=== PATIENT | female | born 1965 | race Two or more races ===

== ENCOUNTER → 2024-09-19 | Outpatient (CLI) | payer BC, SELFPAY ==
--- NOTE | 2024-09-19 | XR_ITS ---
Examination: Knee, left , 3 views Technique: Knee AP, lateral, oblique 3 views Date and time of exam: 07/22/2024 1246 hrs. Indications: Left knee pain one month Findings: Moderate osteopenia Moderate narrowing medial joint space Mild osteoarthritis patellofemoral joint No fracture Impression: Moderate medial joint space
--- NOTE | 2024-09-19 | XR_ITS ---
Examination: Lumbar spine, 5 views Technique: Lumbar spine AP, lateral, coned lateral lower lumbar spine, bilateral obliques 5 views Exam date and time: September 19, 2024 1246 hrs. Indications: Onset back pain beginning one month ago. Findings: Lumbar levoscoliosis 8 degrees Grade 1 anterolisthesis L4 on L5 No lumbar fracture Mild to moderate disc narrowing L4-5 Impression: Moderate degenerative disc disease L4-5
--- NOTE | 2024-09-19 12:05 | XR_ITS ---
Examination: Abdomen sonogram, complete Date and time of exam: September 19, 2024, 12 0 9:00 PM Indications: Abdominal pain one month. Technique: Multiple real-time grayscale transabdominal sonographic images of the abdomen have been obtained. Findings: Cholelithiasis, negative for cholecystitis Common duct 0.2 cm Pancreatic head 2.7 cm Aorta not enlarged. Liver 15.8 cm liver lesions Normal hepatopedal portal venous flow. Patent IVC. Right kidney 9.0 cm cortex 2.1 cm Left kidney 11.5 cm cortex 2.2 cm Mild renal parenchymal scar formation Minimal fluid anterior to the left kidney Spleen 8.6 cm Impression: Cholelithiasis, negative for cholecystitis Suspicious for left urinary tract infection
--- NOTE | 2024-09-19 12:05 | XR_ITS ---
Examination: Retroperitoneal ultrasound, complete Technique: Multiple high resolution grayscale images of the retroperitoneum obtained, including kidneys and bladder. Exam date and time:September 19, 2024 at 12:21 PM Indications: Flank pain one month Findings: Right kidney 11.0 cm cortex 1.9 cm Left kidney 11.3 cm cortex 2.2 cm Moderate bilateral renal parenchymal scar formation. Mild fluid anterior to the left kidney No bladder mass, bladder volume 257 cc Impression: Moderate bilateral renal parenchymal scar formation Suspicious for left urinary tract infection
== END | disposition home or self-care (01) ==
PROVIDERS: PCP Family Medicine; Referring Provider Registered Nurse; Visit Provider Registered Nurse
DX: M25.562 Pain in left knee (principal); M51.369 Other intervertebral disc degeneration, lumbar region without mention of lumbar back pain or lower extremity pain; K80.20 Calculus of gallbladder without cholecystitis without obstruction; N28.89 Other specified disorders of kidney and ureter
CPT/HCPCS: 72110; 73562; 76700; 76770

== ENCOUNTER → 2024-09-27 | Outpatient (CLI) | payer BC, SELFPAY ==
[2024-09-27 16:15] LABS: Collection Type, Urine Clean Catch
[2024-09-27 17:50] LABS: Bacteria,Urine Rare; Bilirubin,Urine Negative (Negative); Blood,Urine Negative (Negative); Clarity,Urine Clear (Clear/Hazy); Color,Urine Lt-Yellow (Lt Yel-Yel); Glucose, Urine 4+ (Negative); Ketones,Urine Negative (Negative); Leukocyte Esterase,Urine Negative (Negative); Nitrite,Urine Negative (Negative); PH,Urine 5.5 (5.0-7.0); Protein,Urine Negative (Neg - Trace); RBC,Urine < 1 /hpf (0-3); Specific Gravity,Urine 1.021 (1.001-1.035); Squamous Epithelial Cell,Urine 2 /hpf (0-5); Urobilinogen,Urine Negative mg/dL (0.0-1.0); WBC,Urine < 1 /hpf (0-5)
== END | disposition home or self-care (01) ==
LOC: SLDO 16:06
PROVIDERS: PCP Registered Nurse; Referring Provider Registered Nurse; Visit Provider Registered Nurse
DX: N39.0 Urinary tract infection, site not specified (principal)
CPT/HCPCS: 81001; 87086

== ENCOUNTER 2025-05-08 10:18 | Inpatient (IN) | payer BC, SELFPAY ==
[2025-05-08] VITALS (7 sets, daily range): BP systolic 153–163; BP diastolic 74–90; PULSE 68–93; RESP 14–98; TEMP 36.8–37; O2SAT 97–100; BMI 32.1; BMI 32.5
--- NOTE | 2025-05-08 10:46 | EDNOTE_ITS ---
ED SOB =RME/HPI General Chief Complaint: Recheck/Abnormal Lab/Rx Stated Complaint: LEFT LEG PAIN/SENT FROM OUTPATIENT US Time Seen by Provider: 05/08/25 10:46 Arrival date/time: 05/08/25 10:18 RME / HPI RME / HPI Narrative: See MDM for Dr. Sultana's HPI documentation. Related Data Home Medications ?Medication ?Instructions ?Recorded ?Confirmed albuterol sulfate 90 mcg/actuation 2 puff inhalation Q 4H PRN 05/09/25 05/09/25 aerosol inhaler shortness of breath or wheez ing ibuprofen 800 mg tablet 800 mg PO Q8H PRN pain 05/0905/09/25 Allergies Allergy/AdvReac Type Severity Reaction Status Date / Time No Known Allergies Allergy Verified 05/09/25 00:24 Review of Systems Review of Systems Systems Reviewed: All systems reviewed, normal except as documented Past Medical History Past Medical History RESPIRATORY: Positive Asthma Social History SMOKING STATUS: Never smoker ED Exam Narrative Physical exam: See MDM for Dr. Sultana's physical exam documentation. Course Quality Measures none Orders Category Date Time Status Bedside COVID-19 Antigen Test NOW Care 05/08/25 10:[address] Screening NOW Care 05/08/25 10:49 Active EKG (ED ONLY) *Do not use* NOW Care 05/08/25 10:48 Completed Saline [Insert IV] NOW Care 05/08/25 10:[address] angio chest Stat Exams 05/08/25 10:49 Completed EKG (ED Only) Stat Exams 05/08/25 10:48 Draft XR chest 1V portable Stat Exams 05/08/25 10:48 Completed BNP [B-Type Natriuretic Peptide] Stat Lab 05/08/25 11:11 Completed Bilirubin,Direct Stat Lab 05/08/25 11:11 Completed CBC Stat Lab 05/08/25 11:11 Completed CMP [Comprehensive Metabolic Panel] Stat Lab 05/08/25 11:11 Completed D-Dimer Stat Lab 05/08/25 11:11 Completed Influenza A & B Rapid Panel Stat Lab 05/08/25 12:45 Completed Magnesium Stat Lab 05/08/25 11:11 Completed PT [Prothrombin Time with INR] Stat Lab 05/08/25 14:10 Completed PTT [Partial Thromboplastin Time] Q6H Lab 05/08/25 21:46 Completed PTT [Partial Thromboplastin Time] Stat Lab 05/08/25 14:10 Completed TSH [Thyroid Stimulating Hormone] Stat Lab 05/08/25 11:11 Completed Troponin I Stat Lab 05/08/25 11:11 Completed UA, C/S IF [Urinalysis, C/S if Indicated] Stat Lab 05/08/25 21:52 Completed Albuterol/Ipratr Rt Rosa [Duoneb Rt Rosa] Med 05/08/25 10:47 Discontinued 3 ml INH X1 ONE Heparin Inj Med 05/08/25 15:00 Discontinued 8,000 unit IV X1 ONE Heparin/D5w 25K 250 ML Ivpb [Heparin in D5w Ivpb] Med 05/08/25 15:00 Active 25,000 unit in 250 ml IV 18 units/kg/hr MethylPREDNISolone.* [SoluMEDROL Inj] Med 05/08/25 10:47 Discontinued 125 mg IVP X1 ONE Sodium Chloride 0.9% 1000 ml [Ns] 1,000 ml Med 05/08/25 10:49 Discontinued IV 999 mls/hr Vital Signs Vital signs: Vital Signs Temperature 98.4 F 05/08/25 10:28 Pulse Rate 82 05/08/25 10:28 Respiratory Rate 19 05/08/25 10:28 Blood Pressure 163/90 H 05/08/25 10:28 Pulse Oximetry (%) 97 05/08/25 10:28 Oxygen Delivery Method Room Air 05/08/25 10:28 Pulse ox is 97% on room air which is adequate. Shortness of Breath / Dyspnea MDM Narrative MDM Narrative:: This section includes all my notes and documentations, including HPI, PE, and ED course. Syed Sultana MD HPI: 59-year-old female here with several days of left leg swelling and shortness of breath. ROS: All negative except as documented in HPI. Physical Exam: General: Alert and oriented. No acute distress with remaining still. Eyes: Conjunctivae and lids clear. ENT: No nasal congestion. Pharynx normal. Tympanic membrane normal bilaterally. Neck: Supple. No JVD. Heart: RRR. Lungs: No respiratory distress. Good air movement except RLL. Chest: No tenderness. Abdomen: Soft and nontender. Legs: No clubbing, cyanosis, edema. Skin: Warm and dry. Neuro: Alert and oriented X 3. I reviewed all diagnostic test results: My interpretation of the EKG is: Sinus rhythm (73 bpm) with right BBB and nonspecific ST-T changes. My interpretation of the chest x-ray is: NAD. My review of the CTA chest report is pulmonary embolism. My review of leg DVT report is left DVT. Blood tests and urine tests remarkable for D-Dimer 3,350. Covid/Influenza are negative. At this point, diagnoses include: Pulmonary embolism DVT Treatment here included: Duoneb and Solu-Medrol day 5 of IV (prior to diagnostic test results) IVF Heparin bolus and drip Patient remained stable. I discussed the case with our hospitalist. About the presentation and exam and diagnostics and treatments here. And need of further care in the hospital. Will accept the patient. Syed Sultana MD Patient data External records reviewed:: [facility] previous records Clinical information provided by:: patient Social determinants that could affect healthcare access:: none Patient has the following chronic illnesses:: Asthma How is presenting disease/condition affected by chronic disease/condition?: uneffected by Evaluation data The following diagnostics were reviewed and interpreted by me:: lab results, radiology exam(s) and EKG tracing(s) (My interpretation of the EKG is: Sinus rhythm (73 bpm) with right BBB and nonspecific ST-T changes. Syed Sultana MD) Lab and/or radiology exams considered but not ordered:: None Interpretation Summary: I reviewed all diagnostic test results: My interpretation of the EKG is: Sinus rhythm (73 bpm) with right BBB and nonspecific ST-T changes. My interpretation of the chest x-ray is: NAD. My review of the CTA chest report is pulmonary embolism. My review of leg DVT report is left DVT. Blood tests and urine tests remarkable for D-Dimer 3,350. Covid/Influenza are negative. Medications / Prescriptions Medications or Prescriptions considered but not ordered:: None Medication administrations:: Medication Administration History Acetaminophen (Acetaminophen 325 Mg Tablet) 650 mg PO Q6H PRN PRN Reason: Fever >100.4 or pain 1-3 Stop: 06/07/25 15:52 Hydrocodone Bitart/Acetaminophen (Hydrocodone/Apap 5/325 Tablet) 1 tab PO Q4HR PRN PRN Reason: PAIN SCALE 4-10(Mod-Sev Stop: 05/13/25 15:52 Last Admin: 05/09/25 05:37 Dose: 1 tab Documented By: Admin: 05/08/25 20:45 Dose: 1 tab Documented By: RICO Albuterol/Ipratropium (Albuterol/Ipratropium (Duoneb) Rt Rosa 3 Ml Nebu) 3 ml INH Q6HRRT REPLACED BY [facility] Stop: 06/07/25 18:59 Last Admin: 05/09/25 06:11 Dose: 3 ml Documented By: Admin: 05/08/25 18:03 Dose: 3 ml Documented By: JENNIFER Dextrose (Dextrose 50%-Water Inj 50 Ml Syringe) 25 ml IV Q15MIN PRN PRN Reason: BG 50-70 responsive npo pt Stop: 06/07/25 15:59 Dextrose (Dextrose 50%-Water Inj 50 Ml Syringe) 50 ml IV Q15MIN PRN PRN Reason: BG <50 OR BG <70 & pt unresponsive Stop: 06/07/25 15:59 Docusate Sodium (Docusate Sod 100 Mg Capsule) 100 mg PO QDAY REPLACED BY [facility]; Protocol Stop: 06/08/25 08:59 Last Admin: 05/09/25 09:02 Dose: Not Given Documented By: SC Non-Admin Reason: Patient Refused Famotidine (Famotidine 20 Mg Tablet) 20 mg PO BID REPLACED BY [facility] Stop: 06/07/25 20:59 Last Admin: 05/09/25 08:16 Dose: 20 mg Documented By: Admin: 05/08/25 21:12 Dose: 20 mg Documented By: MAGDY Glucagon (Glucagon Inj 1 Mg Vial) 1 mg IM Q15MIN PRN PRN Reason: BG <70, and no IV access Heparin Sodium/Dextrose (Heparin In D5w Ivpb) 25,000 unit in 250 mls @ 17.983 mls/hr IV .[id number] REPLACED BY [facility]; Protocol Stop: 05/22/25 14:59 Last Admin: 05/09/25 08:15 Dose: 15 units/kg/hr, 14.986 mls/hr Documented By: SC Co-signed By: JRR Titration: 05/09/25 07:39 Dose: Infused Documented By: SC Co-signed By: JRR Titration: 05/09/25 07:28 Dose: 15 units/kg/hr, 14.986 mls/hr Documented By: SC Co-signed By: MLD Titration: 05/08/25 23:52 Dose: 15 units/kg/hr, 14.986 mls/hr Documented By: MLD Co-signed By: IG Titration: 05/08/25 22:52 Dose: 0 units/kg/hr, 0 mls/hr Documented By: DT Co-signed By: SE Admin: 05/08/25 15:27 Dose: 18 units/kg/hr, 17.983 mls/hr Documented By: CHERYL Co-signed By: LF Insulin Human Lispro (Insulin Lispro (Admelog) 1 Unit/0.01 Ml Unit) 0 unit SC ACHS BRENNAN; Protocol Stop: 06/07/25 16:59 Last Admin: 05/09/25 08:16 Dose: 3 unit Documented By: SC Co-signed By: DARIELA Admin: 05/08/25 21:14 Dose: 4 unit Documented By: CB Co-signed By: DT Admin: 05/08/25 18:15 Dose: Not Given Documented By: CHERYL Non-Admin Reason: Patient Refused Discontinued Medications Albuterol/Ipratropium (Albuterol/Ipratropium (Duoneb) Rt Rosa 3 Ml Nebu) 3 ml INH X1 ONE Stop: 05/08/25 10:48 Last Admin: 05/08/25 12:29 Dose: 3 ml Documented By: [facility] Heparin Sodium (Porcine) (Heparin Sod Inj 5000 Unit/Ml Vial) 8,000 unit 80 unit/kg (8000 unit) IV X1 ONE; Protocol Stop: 05/08/25 15:01 Last Admin: 05/08/25 15:24 Dose: 8,000 unit Documented By: CHERYL Co-signed By: LF Sodium Chloride (Ns) 1,000 mls @ 999 mls/hr IV .Q1H1M ONE Stop: 05/08/25 11:49 Last Infusion: 05/08/25 15:14 Dose: Infused Documented By: Admin: 05/08/25 13:00 Dose: 999 mls/hr Documented By: DB Methylprednisolone Sodium Succinate (Methylprednisolone Sod Succ 62.5 Mg/Ml 2ml Vial) 125 mg IVP X1 ONE Stop: 05/08/25 10:48 Last Admin: 05/08/25 13:00 Dose: 125 mg Documented By: DB Potassium Chloride (Potassium Chloride 20 Meq Tabcr) 40 meq PO X1 ONE Stop: 05/09/25 07:41 Last Admin: 05/09/25 08:30 Dose: 40 meq Documented By: SC Treatment here from me included: Duoneb and Solu-Medrol day 5 of IV (prior to diagnostic test results) IVF Heparin bolus and drip Consultations Consultation(s) initiated? (list below): Yes Consultation #1 (Physician, Specialty, Details): I discussed the case with our hospitalist. About the presentation and exam and diagnostics and treatments here. And need of further care in the hospital. Will accept the patient. Time: 15:15 Diagnosis Shortness of Breath Differential Diagnosis: acute exacerbation of chronic obstructive airways disease, congestive heart failure, community acquired pneumonia, asthma with exacerbation and pulmonary embolism Most likely diagnosis given after review of the tests above:: Pulmonary embolism DVT Admission Indicated Admission indicated?: indicated Explain why admission is indicated or not indicated:: PE and DVT Admission Request Was there a request for admission?: Yes Admission Attestation Admission request attestation: Discussed case with Hospitalist service regarding admission. Discussed patients ED course, exam findings, labs, and radiology results. Agreed to accept the patient for admission. Disposition Plan Disposition Plan: Admit Critical Care Time Critical Care Time Critical Care Time: Yes Total Critical Care Time (min.): 35 Attestation: Due to a high probability of clinically significant, life threatening deteriora tion, the patient required my highest level of preparedness to intervene emergently and I personally spent this critical care time directly and personally managing the patient. This critical care time included obtaining a history; examining the patient; ordering and review of studies; arranging urgent treatment with development of a management plan; evaluation of patient's response to treatment; frequent reassessment; and discussions with family and other providers. It was exclusive of separately billable procedures and treating other patients and teaching time. Syed Sultana MD Discharge Plan Plan Patient Disposition: Admit Acute Care w/in Hospital Problem List Clinical Impression: Pulmonary embolism, DVT (deep venous thrombosis)
--- NOTE | 2025-05-08 10:48 | XR_ITS ---
EXAMINATION: PA chest single view TECHNIQUE: Upright PA chest single view Date and time: May 08, 2025, 10:53 a.m. INDICATIONS: Chest pain shortness of breath today. FINDINGS: Normal heart size. Lungs are clear. The osseous rectors are intact IMPRESSION: No active disease
--- NOTE | 2025-05-08 10:48 | EKG_ITS ---
[facility] Test Date: 2025-05-08 Pat Name: ONEIL AVALOS Department: Room: - Gender: Female [employer] Tender: : 1965 Requested By: Syed Carlson Order Number: [id number] Reading MD: Syed Carlson Measurements Intervals Merna Rate: 73 P: 43 MS: 180 QRS: 31 QRSD: 143 T: 6 QT: 437 QTc: 483 Interpretive Statements SINUS RHYTHM RIGHT BUNDLE BRANCH BLOCK [120+ ms QRS DURATION, UPRIGHT V1, 40+ ms S IN I/aVL/V4/V5/V6] No previous ECG available for comparison /store/S0/[id number]
--- NOTE | 2025-05-08 10:49 | XR_ITS ---
Examination: CTA chest with intravenous contrast 2-D reconstructions 3-D reconstructions, vascular Date and time of exam: May 08, 2025, 1418 hours INDICATIONS: Shortness of breath chest pain onset today CTDI: vol (mGy) 17 DLP: (mGycm) 345 Technique: Multiple axial sections of the thorax have been obtained. 3 mm slice thickness, from below the hemidiaphragms to above the apices of the lungs. Mediastinal and lung density settings have been obtained. 2-D sagittal and coronal reconstructions. 3-D angiographic renderings, 3-D volume renderings, 3D post processing, vascular maximum intensity projections obtained. Contrast administered is 100 cc Isovue-370 intravenous. Low dose protocols were performed. One or more of the following dose reduction techniques were used; automated exposure control, adjustment of the mA and/or KV according to patient size, use of iterative reconstruction technique. Findings: No thoracic aortic aneurysm dilatation or dissection Positive for pulmonary artery filling defects left upper lobe pulmonary arteries, for instance axial image 55 and right lower lobe pulmonary artery branches for instance image 57 through 45 3 mm pulmonary nodule right upper lobe No pneumonia or pulmonary infarction No liver or splenic lesion Multiple gallstones No pancreatic mass Left adrenal adenoma 20 mm IMPRESSION: Positive for multiple segmental pulmonary artery emboli 3 mm pulmonary nodule right upper lobe, with the studies baseline recommend 6-month follow-up CT chest without contrast
[2025-05-08 11:36] LABS: Basophils # (Auto) 0.0 Thou/mm3 (0.0-0.2); Basophils % (Auto) 0 % (0-2.5); Eosinophils # (Auto) 0.2 Thou/mm3 (0.0-0.5); Eosinophils % (Auto) 2 % (0-10); Hematocrit 39.4 % (36.0-46.0); Hemoglobin 12.4 g/dL (12.0-16.0); Immature Granulocytes Auto 0.02 Thou/mm3 (0.00-0.00); Lymphocytes # (Auto) 2.0 Thou/mm3 (1.0-4.8); Lymphocytes % (Auto) 23 % (10-50); Mean Corpuscular HGB Conc 31.5 g/dl (31.0-37.0); Mean Corpuscular Hemoglobin 26.8 pg (25.0-35.0); Mean Corpuscular Volume 85 fL (80-100); Monocytes # (Auto) 0.8 Thou/mm3 (0.0-0.8); Monocytes % (Auto) 9 % (0-12); Neutrophils # (Auto) 5.4 Thou/mm3 (1.8-7.7); Neutrophils % (Auto) 65 % (37-80); Nucleated Red Blood Cell # 0.00 Thou/mm3 (0.00-0.00); Nucleated Red Blood Cell % 0 /100 WBC (0); Platelet Count 190 Thou/mm3 (140-440); RDW Standard Deviation 46.1 fL (36.4-46.3); Red Blood Count 4.63 Miln/mm3 (4.00-5.20); White Blood Count 8.4 Thou/mm3 (3.6-11.0)
[2025-05-08 11:52] LABS: Alanine Aminotransferase 11 U/L (10-49); Albumin, Serum 5.2 gm/dL (3.5-5.0); Albumin/Globulin Ratio 2.3 (1.2-2.2); Alkaline Phosphatase 94 U/L (46-116); Anion Gap 12 (7-16); Aspartate Amino Transferase 24 U/L (0-34); BUN/Creatinine Ratio 14 Ratio (12-20); Bilirubin,Direct 0.2 mg/dL (0.0-0.3); Bilirubin,Total 0.9 mg/dL (0.3-1.2); Blood Urea Nitrogen 11 mg/dL (9-23); Calcium 9.2 mg/dL (8.3-10.6); Calcium (Corrected) 9.2 mg/dL (8.5-10.1); Carbon Dioxide 25.1 mMol/L (20.0-31.0); Chloride 106 mMol/L (98-107); Creatinine (Component) 0.8 mg/dL (0.6-1.3); Estimated Creatinine Clearance 97.6 mL/min (>60); Globulin 2.3 gm/dL (2.3-3.5); Glucose 127 mg/dL (74-106); Magnesium 2.2 mg/dL (1.6-2.6); Osmolality,Calculated 286 (275-295); Potassium 3.7 mMol/L (3.4-5.1); Sodium 143 mMol/L (136-145); Thyroid Stimulating Hormone 1.13 uIU/mL (0.55-4.78); Total Protein 7.5 gm/dL (5.7-8.2); Troponin I < 0.002 ng/mL (0.0-0.045); eGFR > 60 See Note
[2025-05-08 12:10] LABS: B-Type Natriuretic Peptide 25 pg/mL (0-100)
[2025-05-08 12:25] LABS: D-Dimer 3350 ng/mL (<600)
[2025-05-08] MEDS: ALBUTEROL/IPRATROPIUM (Duoneb) RT SOL 3 ML NEBU INH ×2 (12:29→18:03)
[2025-05-08] MEDS: SODIUM CHLORIDE 0.9% 1000 ML 1,000 ML 999 ML IV (13:00)
[2025-05-08] MEDS: MethylPREDNISolone SOD SUCC 62.5 MG/ML 2ML VIAL 125 MG IVP (13:00)
[2025-05-08 13:17] LABS: Influenza A Ag Negative; Influenza B Ag Negative
[2025-05-08 14:52] LABS: INR 1.1 (0.9-1.3); Partial Thromboplastin Time 27.7 Seconds (22.0-36.0); Prothrombin Time 11.4 Seconds (9.0-12.2)
[2025-05-08] MEDS: HEPARIN SOD INJ 5000 UNIT/ML VIAL 8000 UNIT IV (15:24)
[2025-05-08] MEDS: Heparin/D5w 25K 250 ML Ivpb 25,000 UNIT/250 ML BAG 17.983 UNIT IV (15:27)
--- NOTE | 2025-05-08 15:34 | ECHO_ITS ---
Patient Info Name: Tori Arellano Age: 59 years : 1965 Gender: Female Ht: 175 cm Wt: 100 kg BSA: 2.24 m2 BP: 129 / 72 mmHg HR: 76 bpm Exam Date: 05/09/2025 2:24 PM Admit Date: 05/08/2025 Site: [facility] Room Number: 260 Patient Status: I Exam Type: CA echo doppler complete Private Duty Lpn: Milagro Dobson Ordering Physician: Yassine Rockwell Study Info Indications PE, Rule out Right heart Strain - Primary Location: [id number] Left Ventricular Outflow Tract Name Value Normal LVOT 2D LVOT Diameter 1.9 cm LVOT Doppler LVOT Peak Velocity 115 cm/s LVOT Mean Gradient 3 mmHg LVOT VTI 29 cm LVOT VTI/AV VTI Ratio 0.8 LVOT Stroke Volume 81 ml Pulmonic Valve Name Value Normal PV Doppler PV Peak Velocity 144 cm/s Mitral Valve Name Value Normal MV Annular TDI MV Septal e' Velocity 8.2 cm/s MV Lateral e' Velocity 8.7 cm/s MV e' Average 8.43 cm/s Tricuspid Valve Name Value Normal TV Regurgitation Doppler TR Peak Velocity 251 cm/s Estimated PAP/RSVP RA Pressure 8 mmHg <=5 PA Systolic Pressure 33 mmHg <36 RV Systolic Pressure 33 mmHg <36 TV Annular TDI TV Lateral Eri s' Velocity 13.1 cm/s >=9.5 Aortic Valve Name Value Normal AV 2D/MM AV Cusp Sep (MM) 1.4 cm AV Doppler AV Peak Velocity 176 cm/s AV Mean Gradient 6 mmHg AV VTI 38 cm AV Area (Cont Eq VTI) 2.1 cm2 >=3.0 AV Area (Cont Eq Maynor) 1.9 cm2 AV DI (Maynor) 0.65 AV Regurgitation 2D LVOT Area 2.8 cm2 Ventricles Name Value Normal LV Dimensions 2D/MM IVS Diastolic Thickness (2D) 0.8 cm 0.6-0.9 LVID Diastole (2D) 4.9 cm 3.8-5.2 LVIW Diastolic Thickness (2D) 1.5 cm 0.6-0.9 LVID Systole (2D) 3.1 cm 2.2-3.5 LVOT Diameter 1.9 cm LV Mass (2D Cubed) 213.26 g 67.00-162.00 LV Mass Index (2D Cubed) 95 g/m2 43-95 Relative Wall Thickness (2D) 0.61 <=0.42 IVS/LVIW Diastolic Thickness (2D) 0.53 0.00-1.50 LV Fractional Shortening/Ejection Fraction 2D/MM LV Fractional Shortening (2D) 37 % 27-45 LV EF (2D Teichholz) 66 % Atria Name Value Normal LA Dimensions LA Volume (4C A-L) 85 ml LA Volume (BP A-L) 67 ml Left Ventricle Left ventricular chamber dimension is normal. Left ventricular systolic function is normal with visually estimated ejection fraction of 60-65%. There is normal geometry noted in the left ventricle. Left ventricular segmental wall motion is normal. There is grade I diastolic dysfunction in the left ventricle. Right Ventricle Right ventricular chamber dimension is normal. Right ventricular systolic function is normal. Left Atrium Left atrial chamber dimension is mildly enlarged. Right Atrium Right atrial chamber dimension is normal. Aortic Valve The aortic valve is trileaflet. There is no aortic valve sclerosis. There is no aortic valve stenosis with a peak velocity of 176 cm/s, mean gradient of 6 mmHg, and aortic valve area of 2.1 cm2. There is no aortic valve regurgitation. Pulmonic Valve The pulmonic valve is normal. There is no pulmonic valve stenosis. There is trace pulmonic regurgitation. Mitral Valve The mitral valve has thickened leaflets. There is no mitral valve stenosis. There is trace mitral valve regurgitation. Tricuspid Valve The tricuspid valve leaflets are normal. There is no tricuspid valve stenosis. There is mild tricuspid valve regurgitation. No pulmonary hypertension, estimated pulmonary arterial systolic pressure is 33 mmHg and systemic blood pressure of 129 mmHg in systole. Pericardium/Pleural The pericardium appears normal. There is no pericardial effusion. No pleural effusion visualized. Inferior Vena Cava Normal inferior vena cava with >50% collapse upon inspiration consistent with normal right atrial pressure, 8 mmHg. Aorta The aortic measurements are indexed to age and body surface area. The aortic root at the sinus of Valsalva is not well visualized. The prox ascending aorta is not well visualized. Summary 1. Left ventricle size is normal and systolic function is normal. Visually estimated ejection fraction is 60-65%. There is grade I diastolic dysfunction. 2. Right ventricle size is normal and systolic function is normal. Estimated RVSP is 33 mmHg. No evidence of any RV strain. 3. There is trace mitral valve regurgitation and mild TR. 4. The left atrium is mildly enlarged. The right atrium is normal. 5. Normal IVC with estimated RA pressure 8 mmHg. Report Signatures Finalized by Donato Navarro on 05/09/2025 08:43 PM
--- NOTE | 2025-05-08 16:08 | PD.RESHP ---
Documentation for date of: 05/08/25 Patient is a 59-year-old female with a medical history of prediabetes and asthma who presented to the emergency room with a chief complaint of abnormal left lower leg swelling with erythema and pain. Patient stated previously similar episode about 4 years ago that was followed up with primary care provider and showed a negative DVT with ultrasound. Patient stated she took a 3-hour drive on Tuesday (05/06/2025) and drove back the following day 3 hours ago, which is less likely provoked as this trip was less than 6 hours. Patient noticed some swelling on Tuesday evening after returning home but became concerned today on 05/08/2025 after swelling increased as compared to the right leg. No recent surgery. Denied Trauma. Denied history of malignancy. Brother history of superficial upper extremity DVT. Patient is admitted for Acute Pulmoanry ebolism. Heparin drip started. Simplified PESI 57 points, grade I. Although Grade I, follow up with Echo and repeat troponin as some patients may still benefit from thrombectomy. Patient will likely be transitioned Eliquis upon discharge to be continued for at least 3 months for PE. Following anticoagulation panel. Depending on echo, may benefit from cardiology consult, if R. heart strain noted. 1. Acute subsegmental pulmonary embolism 2. Acute Pulmonary embolism 3. Acute lower extremity DVT, unprovoked 4. Diabetes Mellitus Type II A1c 6.8 (2023) 5. Asthma Senior Resident Attestation: I have discussed the case with supervising physician and internet merchant physician involved in the care of patient. I personally saw and examined patient and discussed the assessment and plan with the entire medical team, including attending. I agree with assessment and plan as documented above. - The patient's plan was discussed with attending Dr. Honey Dowell MD PGY2 Internal Medicine HPI History of Present Illness History of present illness: 59-year-old female with PMHx of asthma presenting to ED from PCP with several days of left leg swelling and shortness of breath. Admitted for unprovoked DVT and PE. Upon initial examination of the patient, she was laying down in gurney with older sister in the room. States 5 days ago, Tuesday, she went on a [address] to visit family, and while there watched over one of her sick grandchildren. On that day she felt a pain in her back and was breathing funny, but thought it was her asthma or maybe the flu. She drove back 3 hours that night. Taking a shower improved her breathing. Two days later, Tuesday, she woke up feeling ill, and hung out at home watching tv and cleaned. On Tuesday her right ankle was bothering her - it is a chronic problem from a lingering fracutre - so she did not go to work. When she sat down to inspect her ankle she noticed her opposite (left) leg was swollen as well so she elevated both legs. On Tuesday morning her left leg was so swollen and painful she couldn't walk but she still went to work because she can sit down. Of note she has a history of unilateral leg swelling managed with hydrochlorothiazide that her PCP says would help with her volume overload swelling, but no history of kidney or cardiac disease. She called her doctor that night as the swelling worsened who recommended she get an US. Upon initial read of US she was sent to the ER. Currently the swelling has reduced but apparently she was unable to wrap her hand around her calf, it was very painful and darker in color. She denies chest pain and is unsure if she has pain with inspiration. Notices some pain in her back that usually happens with asthma exacerbation. She endorses posterior left leg pain and swelling. Notable for recent history of broken right foot last year and gained about 20lbs since then. She endorses understanding of risks of falls on heparin and other anticoagulants and is agreeable to treatment. ED Course Summary: Physical Exam: Unremarkable, No respiratory distress lungs clear to auscultation, heart RRR and no JVD Vitals: Hypertensive 163/90, HR 82 RR 19 O2 97% RA Labs: Unremarkable CBC and CMP, coag panel wnl, D-dimer 3,350, troponin <0.002 COVID and flu negative UA +4 glucose Imaging: EKG RBBB QTc 483. Venous doppler: extensive acute occlusive DVT left superficial femoral vein, left popliteal peroneal posterior tibial veins extensive acute occlusive DVT . Cxr: no active disease. Chest CTA positive for multiple segmental pulmonary artery emboli, 3mm pulm nodule RUL Tx: Duoneb, solumedrol 125mg IV, IV fluids, heparin gtt Patient is being admitted for acute pulmonary embolism and unprovoked DVT. Code: Full Insulin: None Medical Hx: Asthma, unilateral leg swelling (fluid overload), R ankle sprain over 1 year Medications: Albuterol prn, HCTZ for when leg swells Allergies: KNA Surgical history: gastric bypass Fhx: Brother has disseminated cocici had a DVT in his hand in October. 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 Exam Vital Signs Temp Pulse Resp BP Pulse Ox O2 Del Method 98.3 F 68 18 153/78 H 100 Room Air 05/08/25 12:16 05/08/25 12:31 05/08/25 12:31 05/08/25 12:16 05/08/25 12:05/08/25 12:16 Narrative Exam GENERAL APPEARANCE: AOx3. NAD, activity normal for age, well developed/ well nourished, no cyanosis, pallor, or diaphoresis. HEENT: Normocephalic atraumatic, no facial trauma, neck is supple. Lids/conjunctiva normal. Mucous membranes moist, nares normal, lips/teeth normal uvula midline without oral pharyngeal erythema, exudate or swelling TMs normal bilaterally. No lymphangitis/lymphedema. CARDIAC: Regular rate and rhythm, S1+S2 heard. No murmurs, rubs, or gallops noted RESPIRATORY: respiratory effort normal, speaks in full sentences, no tripod position, no accessory muscle use. + rhonchi +wheezes left side ABDOMINAL: NBS. Soft, ND, +TTP at epigastrium. No evidence of fluid wave. No pulsatile masses on exam, rebound tenderness, Armstrong sign or pain over Mcburney's point. MUSCLES/EXTREMITIES: No abnormal range of motion. Left leg swelling and left popliteal swelling and tenderness and warmth. DERM: Warm, pink and dry. No rashes, dermatoses, petechiae or lesions. NEUROLOGICAL: Speech is clear and appropriate. Normal level of consciousness. Gait not assessed. Coordination normal. 5/5 strength in all extremities. PSYCH: Normal mood and affect. Judgement/competence is appropriate Results: Labs 05/09/25 05:15 05/09/25 05:15 Labs: Short CBC 05/08/25 Range/Units 11:11 WBC 8.4 (3.6-11.0) Thou/mm3 Hgb 12.4 (12.0-16.0) g/dL Hct 39.4 (36.0-46.0) % Plt Count 190 (140-440) Thou/mm3 BMP 05/08/25 11:11 Sodium 143 Potassium 3.7 Chloride 106 Carbon Dioxide 25.1 BUN 11 Creatinine 0.8 Glucose 127 H Calcium 9.2 Cardiac Enzymes 05/08/25 Range/Units 11:11 Troponin I < 0.002 (0.0-0.045) ng/mL Liver Function 05/08/25 Range/Units 11:11 Total Bilirubin 0.9 (0.3-1.2) mg/dL Direct Bilirubin 0.2 (0.0-0.3) mg/dL AST 24 (0-34) U/L ALT 11 (10-49) U/L Alkaline Phosphatase 94 (46-116) U/L Albumin 5.2 H (3.5-5.0) gm/dL Quality Measures Quality Measures none Medications Home Medications and Allergies Home Medications ?Medication ?Instructions ?Recorded ?Confirmed ?Type albuterol sulfate 90 mcg/actuation 2 puff inhalation Q4H PRN 05/09/25 05/09/25 History aerosol inhaler shortness of breath or wheezing ibuprofen 800 mg tablet 800 mg PO Q8H PRN pain 05/09/25 05/09/25 History Allergies Allergy/AdvReac Type Severity Reaction Status Date / Time No Known Allergies Allergy Verified 05/09/25 00:24 Visit Medications Acetaminophen (Acetaminophen 325 Mg Tablet) 650 mg PO Q6H PRN PRN Reason: Fever >100.4 or pain 1-3 Stop: 06/07/25 15:52 Hydrocodone Bitart/Acetaminophen (Hydrocodone/Apap 5/325 Tablet) 1 tab PO Q4HR PRN PRN Reason: PAIN SCALE 4-10(Mod-Sev Stop: 05/13/25 15:52 Albuterol/Ipratropium (Albuterol/Ipratropium (Duoneb) Rt Rosa 3 Ml Nebu) 3 ml INH Q6HRRT BRENNAN Stop: 06/07/25 18:59 Dextrose (Dextrose 50%-Water Inj 50 Ml Syringe) 25 ml IV Q15MIN PRN PRN Reason: BG 50-70 responsive npo pt Stop: 06/07/25 15:59 Dextrose (Dextrose 50%-Water Inj 50 Ml Syringe) 50 ml IV Q15MIN PRN PRN Reason: BG <50 OR BG <70 & pt unresponsive Stop: 06/07/25 15:59 Docusate Sodium (Docusate Sod 100 Mg Capsule) 100 mg PO QDAY [facility]; Protocol Stop: 06/08/25 08:59 Famotidine (Famotidine 20 Mg Tablet) 20 mg PO BID BRENNAN Stop: 06/07/25 20:59 Glucagon (Glucagon Inj 1 Mg Vial) 1 mg IM Q15MIN PRN PRN Reason: BG <70, and no IV access Heparin Sodium/Dextrose (Heparin In D5w Ivpb) 25,000 unit in 250 mls @ 17.983 mls/hr IV .[id number] [facility]; Protocol Stop: 05/22/25 14:59 Last Admin: 05/08/25 15:27 Dose: 18 units/kg/hr, 17.983 mls/hr Insulin Human Lispro (Insulin Lispro (Admelog) 1 Unit/0.01 Ml Unit) 0 unit SC ACHS [facility]; Protocol Stop: 06/07/25 16:59 Discontinued Medications Albuterol/Ipratropium (Albuterol/Ipratropium (Duoneb) Rt Rosa 3 Ml Nebu) 3 ml INH X1 ONE Stop: 05/08/25 10:48 Last Admin: 05/08/25 12:29 Dose: 3 ml Heparin Sodium (Porcine) (Heparin Sod Inj 5000 Unit/Ml Vial) 8,000 unit 80 unit/kg (8000 unit) IV X1 ONE; Protocol Stop: 05/08/25 15:01 Last Admin: 05/08/25 15:24 Dose: 8,000 unit Sodium Chloride (Ns) 1,000 mls @ 999 mls/hr IV .Q1H1M ONE Stop: 05/08/25 11:49 Last Infusion: 05/08/25 15:14 Dose: Infused Methylprednisolone Sodium Succinate (Methylprednisolone Sod Succ 62.5 Mg/Ml 2ml Vial) 125 mg IVP X1 ONE Stop: 05/08/25 10:48 Last Admin: 05/08/25 13:00 Dose: 125 mg Assessment & Plan Plan 59-year-old female here with several days of left leg swelling and shortness of breath. Admitted for PE and DVT. #PE 2/2 unprovoked DVT Virchow triad: stasis, hypercoagulability, endothelial injury. Only 1/3: stasis Patient had recent multiple 3 [address] and recent sick contact. She has swelling, erythema, and pain of her left lower extremity as well as pain in her back when breathing. On physical exam patient is breathing fine on RA + rhonchi +wheezes left side, Left leg swelling and left popliteal swelling and tenderness and warmth. Lab workup is siginficant for elevated D-dimer 3350 EKG RBBB QTc 483. COVID and flu negative. Venous doppler extensive acute occlusive DVT. Cxr: no active disease. Chest CTA positive for multiple segmental pulmonary artery emboli. Started on heparin drip in ED. Plan: -Heparin drip -Cocci serology:___ -ECHO:___ -TSH:___ -Cards consulted -Currently on AC but should consider outpatient work up Inherited thrombophilias: factor V Leiden, prothrombin gene mutation, protein C deficiency, protein S deficiency, antithrombin deficiency. Acquired thrombophilias: antiphospholipid syndrome (lupus anticoagulant, anticardiolipin, and beta-2 glycoprotein I antibodies). #Hyperglycemia #c/f diabetes A1C 6.8 03/15/24. 127 glucose on admission. Plan: -ISS step 1 -Bedside glucose checks ACHS -Recheck A1C in AM -FUP lipid panel:___ #Hx of asthma Wheezing heard on physical exam, has an albuterol inhaler Plan: -Duonebs 3ml INH Q6HRRT rtsol #Hx of R ankle pain/break Plan: -Pain control tylenol 650mg Q6H PRN and Narco 5 Q4HR PRN #Incidental finding #3mm pulm nodule RUL 3 mm pulmonary nodule right upper lobe on CT angio Plan: -recommend 6-month follow-up CT chest without contrast Health Maintenance: Code status: Full DVT prophylaxis: Heparin drip GI prophylaxis: Famotidine Diet: Low carb consistent Murray:None Lines: PIV Supplemental O2: NC Disposition: Tele for DVT and PE management Patient seen and reviewed with attending Dr. Méndez and supervising resident Dr. Dowell. Note written by Jay Schwartz MD PGY-1 Attending Provider Attestation/Addendum I have seen and examined the patient. I was physically present for the cardenas portions of the services provided including history, physical exam, diagnosis, treatment plans and orders. I agree with assessment and plan of care as documented by residents. After examination of the patient and review of the clinical data I feel that this patient needs admission to the hospital for further treatment/evaluation. Even though this this note was carefully revised there may still be minor errors in machinist apprentice due to voice recognition software. Flo Méndez MD
[2025-05-08 17:04] LABS: Troponin I < 0.002 ng/mL (0.0-0.045)
--- NOTE | 2025-05-08 17:37 | ESCONSULT_ITS ---
HPI Data of Consult Requesting Physician: Flo Méndez MD Admitting Provider: Flo Méndez MD Attending Provider: Flo Méndez MD Primary Care Provider: Renetta Banks MD Consult Narrative History of present illness: Tori Arellano is a 59-year-old female with a history of asthma who presents to the ED with left lower extremity swelling and pain. She first noted right lower extremity discomfort two days ago but attributes this to an old ankle fracture. The following day her left lower extremity started to become uncomfortable and noted significantly progressive swelling and pain to the point where she could not bend her left knee and prompted her to come to the emergency room. Does not endorse any shortness of breath but repeatedly states that she has asthma but does have some right-sided chest discomfort that is not pleuritic in nature. She did go on a road trip that was about three hours but denies any long distance traveling, including flights. States that she is relatively active at her job and denies any recent weight loss and night sweats. However, she does state that her brother was recently diagnosd with a clot in his upper extremity but no other family history of clots. In the ED she was on room air saturating 97% and hemodynamically stable with blood pressure noted to be 163/90. Labs significant for D-dimer of 3300, negative troponin, negative BNP. Venous Doppler of the left lower extremity showed extensive, acute, occlusive DVTs of the left superficial femoral vein, left popliteal, peroneal, and posterior tibial veins. CTA chest showed multiple segmental pulmonary emboli and a 3 mm pulmonary nodule in the right upper lobe. EKG showed sinus rhythm, right bundle branch block with no previous EKGs to compare. Started on heparin drip, given DuoNebs as well as IV steroids, 1 L NS bolus. Cardiology consulted for DVT and pulmonary emboli. PMHx: asthma Medications: albuterol inhaler FHx: brother with DVT in upper extremity but no reported clotting disorders SHx: denies significant cigarette, alcohol, or illicit drug use; works in [employer] for the [employer] cc:: cc: Flo Méndez MD Review of Systems Review of Systems Systems Reviewed: All systems reviewed, normal except as documented Exam Vital Signs Temp Pulse Resp BP Pulse Ox O2 Del Method 98.3 F 81 18 153/78 H 100 Room Air 10/29/25 12:16 05/08/25 16:35 05/08/25 16:35 05/08/25 12:16 05/08/25 12:31 05/08/25 12:16 Narrative Exam General: AOx3, no acute distress, able to speak full sentences HEENT: NC/AT, mucous membranes moist, bilateral sclera anicteric Cardiovascular: regular rate and rhythm, S1/S2 present, no murmurs appreciated Pulmonary: clear to auscultation bilaterally, no rales/rhonchi/wheezes Abdominal: soft, non-tender, non-distended, no rebound/guarding, normal bowel sounds present Musculoskeletal: normal ROM, trace edema in left lower extremity and tenderness to palpation in popliteal region Skin: warm and dry, intact, no rashes Neuro: CN II-XII intact, no focal deficits Results Labs 05/09/25 05:15 05/09/25 05:15 Labs: Short CBC 05/08/25 Range/Units 11:11 WBC 8.4 (3.6-11.0) Thou/mm3 Hgb 12.4 (12.0-16.0) g/dL Hct 39.4 (36.0-46.0) % Plt Count 190 (140-440) Thou/mm3 BMP 05/08/25 11:11 Sodium 143 Potassium 3.7 Chloride 106 Carbon Dioxide 25.1 BUN 11 Creatinine 0.8 Glucose 127 H Calcium 9.2 Cardiac Enzymes 05/08/25 05/08/25 Range/Units 11:11 16:29 Troponin I < 0.002 < 0.002 (0.0-0.045) ng/mL Liver Function 05/08/25 Range/Units 11:11 Total Bilirubin 0.9 (0.3-1.2) mg/dL Direct Bilirubin 0.2 (0.0-0.3) mg/dL AST 24 (0-34) U/L ALT 11 (10-49) U/L Alkaline Phosphatase 94 (46-116) U/L Albumin 5.2 H (3.5-5.0) gm/dL Quality Measures Quality Measures none Medications Home Medications and Allergies Home Medications ?Medication ?Instructions ?Recorded ?Confirmed ?Type albuterol sulfate 90 mcg/actuation 2 puff inhalation Q 4H PRN 05/09/25 05/09/25 History aerosol inhaler shortness of breath or wheez ing ibuprofen 800 mg tablet 800 mg PO Q8H PRN pain 05/0905/09/25 History Allergies Allergy/AdvReac Type Severity Reaction Status Date / Time No Known Allergies Allergy Verified 05/09/25 00:24 Visit Medications Acetaminophen (Acetaminophen 325 Mg Tablet) 650 mg PO Q6H PRN PRN Reason: Fever >100.4 or pain 1-3 Stop: 06/07/25 15:52 Hydrocodone Bitart/Acetaminophen (Hydrocodone/Apap 5/325 Tablet) 1 tab PO Q4HR PRN PRN Reason: PAIN SCALE 4-10(Mod-Sev Stop: 05/13/25 15:52 Albuterol/Ipratropium (Albuterol/Ipratropium (Duoneb) Rt Rosa 3 Ml Nebu) 3 ml INH Q6HRRT BRENNAN Stop: 06/07/25 18:59 Dextrose (Dextrose 50%-Water Inj 50 Ml Syringe) 25 ml IV Q15MIN PRN PRN Reason: BG 50-70 responsive npo pt Stop: 06/07/25 15:59 Dextrose (Dextrose 50%-Water Inj 50 Ml Syringe) 50 ml IV Q15MIN PRN PRN Reason: BG <50 OR BG <70 & pt unresponsive Stop: 06/07/25 15:59 Docusate Sodium (Docusate Sod 100 Mg Capsule) 100 mg PO QDAY [facility]; Protocol Stop: 06/08/25 08:59 Famotidine (Famotidine 20 Mg Tablet) 20 mg PO BID BRENNAN Stop: 06/07/25 20:59 Glucagon (Glucagon Inj 1 Mg Vial) 1 mg IM Q15MIN PRN PRN Reason: BG <70, and no IV access Heparin Sodium/Dextrose (Heparin In D5w Ivpb) 25,000 unit in 250 mls @ 17.983 mls/hr IV .[id number] [facility]; Protocol Stop: 05/22/25 14:59 Last Admin: 05/08/25 15:27 Dose: 18 units/kg/hr, 17.983 mls/hr Insulin Human Lispro (Insulin Lispro (Admelog) 1 Unit/0.01 Ml Unit) 0 unit SC ACHS [facility]; Protocol Stop: 06/07/25 16:59 Discontinued Medications Albuterol/Ipratropium (Albuterol/Ipratropium (Duoneb) Rt Rosa 3 Ml Nebu) 3 ml INH X1 ONE Stop: 05/08/25 10:48 Last Admin: 05/08/25 12:29 Dose: 3 ml Heparin Sodium (Porcine) (Heparin Sod Inj 5000 Unit/Ml Vial) 8,000 unit 80 unit/kg (8000 unit) IV X1 ONE; Protocol Stop: 05/08/25 15:01 Last Admin: 05/08/25 15:24 Dose: 8,000 unit Sodium Chloride (Ns) 1,000 mls @ 999 mls/hr IV .Q1H1M ONE Stop: 05/08/25 11:49 Last Infusion: 05/08/25 15:14 Dose: Infused Methylprednisolone Sodium Succinate (Methylprednisolone Sod Succ 62.5 Mg/Ml 2ml Vial) 125 mg IVP X1 ONE Stop: 05/08/25 10:48 Last Admin: 05/08/25 13:00 Dose: 125 mg Assessment & Plan Plan Tori Arellano is a 59-year-old female with a history of asthma who is admitted and cardiology consulted for DVT/PE. #Unprovoked acute, occlusive DVT in left lower extremity #Multiple pulmonary emboli Presents with lower extremity swelling and pain for the last few days to the point where she could not bend at the knee. No associated shortness of breath but some right-sided chest discomfort. After starting heparin drip in ED, lower extremity swelling significantly improved per patient. Per history, no risk factors for development of DVT/PE as she has not recently had long distance travel, recent infection, or signs of malignancy but will require further work- up. Denies shortness of breath, breathing well on room air, and is hemodynamically stable; thus, unlikely massive/submassive pulmonary emboli, consistent with imaging findings but will further evaluate with echo. EKG with RBBB that may be sign of RV strain but no previous EKGs to compare. ? Continue heparin drip ? Follow-up echo ? If no procedure indicated then can transition to eliquis 10 mg twice daily for 7 days and then 5 mg twice daily thereafter ? DVT/PE seemingly unprovoked, recommend further evaluation for coagulation disorders and malignancy work-up (i.e. never had colonoscopy) outpatient #Hyperglycemia in setting of recent steroids #Asthma #History of right ankle pain/break #Incidental 3 mm pulm nodule in RUL ? Continue management per primary team ----- Plan discussed with attending physician Dr. Honorio Almonte MD PGY-2 Internal Medicine Attending Provider Attestation/Addendum I have personally seen and examined the patient separately on the above date of service and discussed the plan of care with the resident. I reviewed the resident Dr. Shen Almonte consultation progress note and agree with the resident findings and plan in the note above and have also edited the documentation to reflect my findings and plan. A 59-year-old female with a past medical history of pulmonary asthma with intermittent albuterol uses, obesity presented to the hospital for worsening lower extremity swelling and pain over the past few days that she also has noted some having shortness of breath for the past 1 to 2 days and decided to come to the emergency department for further evaluation. The emergency department workup showed that patient did have occlusive left DVT which was extensive involving the left superficial vein, left popliteal vein, peroneal vein as well as posterior tibial vein. CTA chest showed segmental pulmonary embolism and hence cardiology was consulted for further evaluation for any mechanical thrombectomy. Reviewed the CT scan in detail and patient does not only have pulmonary embolus and subsegmental branches which are very small and are not amenable for any kind of mechanical thrombectomy. Also the troponins are negative along with the BNP and there was no evidence of any RV strain. Recommend to continue medical management with heparin drip for now and eventually changed to Eliquis aspirin DVT and PE guidelines. Patient does not feel any shortness of breath. Unclear etiology at the present moment and patient denies any kind of long distance travel except for 3 hours when she went to visit her granddaughter at her school, denies active smoking, use of estrogen supplements or family history of any DVT or a travel or prolonged immobilization in the recent past. Patient will need complete hypercoagulable workup along with emergency workup. She was scheduled for colonoscopy but has been postponing. As patient will be on blood thinners recommend to avoid any procedures for at least next 3 months. Patient will need to follow-up with the vascular medicine anticoagulation clinic in [place] to complete the workup and determine the duration of treatment for the PE as well as the DVT. Management of rest of the medical conditions as per primary team and other consultants. Thank you for the consult and allowing me to participate in the care of the patient. Cardiology will continue to follow. Donato Navarro M.D. Interventional Cardiology
[2025-05-08] MEDS: HYDROcodone/APAP 5/325 TABLET 1 TAB PO (20:45)
[2025-05-08] MEDS: FAMOTIDINE 20 MG TABLET PO (21:12)
[2025-05-08] MEDS: INSULIN LISPRO (AdmeLOG) 1 UNIT/0.01 ML UNIT SC (21:14)
[2025-05-08 22:12] LABS: Collection Type, Urine Clean Catch; WBC,Urine 0 /hpf (0-5)
[2025-05-08 22:38] LABS: Bacteria,Urine Rare; Bilirubin,Urine Negative (Negative); Blood,Urine Negative (Negative); Clarity,Urine Clear (Clear/Hazy); Color,Urine Lt-Yellow (Lt Yel-Yel); Culture Indicated,Urine Not Indicated; Glucose, Urine 4+ (Negative); Hyaline Casts,Urine < 1 /hpf (0-1); Ketones,Urine 1+ (Negative); Leukocyte Esterase,Urine Negative (Negative); Nitrite,Urine Negative (Negative); PH,Urine 6.0 (5.0-7.0); Protein,Urine Negative (Neg - Trace); RBC,Urine 6 /hpf (0-3); Squamous Epithelial Cell,Urine 1 /hpf (0-5); Urobilinogen,Urine Negative mg/dL (0.0-1.0)
[2025-05-08 22:51] LABS: Partial Thromboplastin Time 101.9 Seconds (22.0-36.0)
--- NOTE | 2025-05-08 22:53 | PC.NURSE ---
PTT RESULTED OF 101.9 PER LAB. PROVIDER JOSE DE JESUS INFORMED. VERBAL OKAY TO STOP FOR 1 HOUR PER PROTOCOL. INFUSION STOPPED AT 2252.
[2025-05-08 23:01] LABS: Specific Gravity,Urine 1.015 (1.001-1.035)
[2025-05-09] VITALS (10 sets, daily range): BP systolic 123–164; BP diastolic 71–94; PULSE 65–106; RESP 13–98; TEMP 35.9–36.5; O2SAT 91–100; BMI 33.0
[2025-05-09] MEDS: HYDROcodone/APAP 5/325 TABLET 1 TAB PO (05:37)
[2025-05-09] MEDS: ALBUTEROL/IPRATROPIUM (Duoneb) RT SOL 3 ML NEBU INH ×3 (06:11→19:45)
[2025-05-09 06:21] LABS: Basophils # (Auto) 0.0 Thou/mm3 (0.0-0.2); Basophils % (Auto) 0 % (0-2.5); Eosinophils # (Auto) 0.0 Thou/mm3 (0.0-0.5); Eosinophils % (Auto) 0 % (0-10); Hematocrit 34.7 % (36.0-46.0); Hemoglobin 11.2 g/dL (12.0-16.0); Immature Granulocytes Auto 0.03 Thou/mm3 (0.00-0.00); Lymphocytes # (Auto) 0.9 Thou/mm3 (1.0-4.8); Lymphocytes % (Auto) 12 % (10-50); Mean Corpuscular HGB Conc 32.3 g/dl (31.0-37.0); Mean Corpuscular Hemoglobin 27.2 pg (25.0-35.0); Mean Corpuscular Volume 84 fL (80-100); Monocytes # (Auto) 0.2 Thou/mm3 (0.0-0.8); Monocytes % (Auto) 3 % (0-12); Neutrophils # (Auto) 6.1 Thou/mm3 (1.8-7.7); Neutrophils % (Auto) 85 % (37-80); Nucleated Red Blood Cell # 0.00 Thou/mm3 (0.00-0.00); Nucleated Red Blood Cell % 0 /100 WBC (0); Platelet Count 183 Thou/mm3 (140-440); RDW Standard Deviation 45.4 fL (36.4-46.3); Red Blood Count 4.12 Miln/mm3 (4.00-5.20); White Blood Count 7.2 Thou/mm3 (3.6-11.0)
--- NOTE | 2025-05-09 06:44 | PC.NURSE ---
PTT RESULT STILL PENDING.
[2025-05-09 06:49] LABS: Partial Thromboplastin Time 54.0 Seconds (22.0-36.0)
[2025-05-09 06:59] LABS: Alanine Aminotransferase 9 U/L (10-49); Albumin, Serum 4.5 gm/dL (3.5-5.0); Albumin/Globulin Ratio 2.0 (1.2-2.2); Alkaline Phosphatase 82 U/L (46-116); Anion Gap 12 (7-16); Aspartate Amino Transferase 20 U/L (0-34); BUN/Creatinine Ratio 16 Ratio (12-20); Bilirubin,Total 0.4 mg/dL (0.3-1.2); Blood Urea Nitrogen 11 mg/dL (9-23); Calcium 8.9 mg/dL (8.3-10.6); Calcium (Corrected) 8.9 mg/dL (8.5-10.1); Carbon Dioxide 22.7 mMol/L (20.0-31.0); Cardiac Risk Estimate 3.2 RATIO (3.7-5.6); Chloride 106 mMol/L (98-107); Cholesterol 197 mg/dL (132-200); Creatinine (Component) 0.7 mg/dL (0.6-1.3); Estimated Creatinine Clearance 112.3 mL/min (>60); Globulin 2.2 gm/dL (2.3-3.5); Glucose 241 mg/dL (74-106); HDL Cholesterol 62 mg/dL (40-60); LDL Cholesterol,Calculated 124 mg/dL (0-130); Magnesium 2.3 mg/dL (1.6-2.6); Osmolality,Calculated 288 (275-295); Phosphorous 2.8 mg/dL (2.4-5.1); Potassium 3.8 mMol/L (3.4-5.1); Sodium 141 mMol/L (136-145); Thyroid Stimulating Hormone 0.39 uIU/mL (0.55-4.78); Total Protein 6.7 gm/dL (5.7-8.2); Triglycerides 57 mg/dL (30-150); eGFR > 60 See Note
[2025-05-09 07:04] LABS: Glucose Estimated Average 151 mg/dL (80-131); Hemoglobin A1C 6.9 % Hgb (4.8-6.0)
[2025-05-09] MEDS: Heparin/D5w 25K 250 ML Ivpb 25,000 UNIT/250 ML BAG 14.986 UNIT IV (08:15)
[2025-05-09] MEDS: INSULIN LISPRO (AdmeLOG) 1 UNIT/0.01 ML UNIT SC ×4 (08:16→20:39)
[2025-05-09] MEDS: FAMOTIDINE 20 MG TABLET PO ×2 (08:16→20:39)
--- NOTE | 2025-05-09 09:44 | ESPR_ITS ---
Documentation for date of: 05/09/25 Subjective Subjective Interval history: No acute overnight events. Seen and examined at bedside and resting comfortably in bed. States that she has some left lower extremity discomfort but is improved compared to presentation. Denies any chest discomfort, shortness of breath. At this time, no procedures planned and can start Eliquis dosed for DVT/PE starting tomorrow if echo without signs of RV strain. Exam Vital Signs Temp Pulse Resp BP Pulse Ox O2 Del Method 97.2 F 82 19 129/72 91 L Room Air 05/09/25 08:00 05/09/25 08:00 05/09/25 08:00 05/09/25 08:00 05/09/25 08:00 05/09/25 08:00 Narrative Exam General: AOx3, no acute distress, able to speak full sentences HEENT: NC/AT, mucous membranes moist, bilateral sclera anicteric Cardiovascular: regular rate and rhythm, S1/S2 present, no murmurs appreciated Pulmonary: clear to auscultation bilaterally, no rales/rhonchi/wheezes Abdominal: soft, non-tender, non-distended, no rebound/guarding, normal bowel sounds present Musculoskeletal: normal ROM, trace edema in left lower extremity and tenderness to palpation in popliteal region Skin: warm and dry, intact, no rashes Neuro: CN II-XII intact, no focal deficits Objective Labs 05/09/25 05:15 05/09/25 05:15 Labs: Laboratory Results - last 24 hr 05/08/25 05/08/25 05/08/25 11:11 12:45 14:10 WBC 8.4 RBC 4.63 Hgb 12.4 Hct 39.4 MCV 85 MCH 26.8 MCHC 31.5 RDW Std Deviation 46.1 Plt Count 190 Neut % (Auto) 65 Lymph % (Auto) 23 [place] % (Auto) 9 Eos % (Auto) 2 Baso % (Auto) 0 Neut # (Auto) 5.4 Lymph # (Auto) 2.0 [place] # (Auto) 0.8 Eos # (Auto) 0.2 Baso # (Auto) 0.0 Immature Gran # (Auto) 0.02 H Absolute Nucleated RBC 0.00 Immature Gran % 0 Nucleated RBC % 0 PT 11.4 INR 1.1 APTT 27.7 D-Dimer 3350 H Sodium 143 Potassium 3.7 Chloride 106 Carbon Dioxide 25.1 Anion Gap 12 BUN 11 Creatinine 0.8 Estim Creat Clear Calc 97.6 eGFR > 60 BUN/Creatinine Ratio 14 [address]ucose [address] Glu mg/dL Hemoglobin A1c Calculated Osmolality 286 Calcium 9.2 Corrected Calcium 9.2 Phosphorus Magnesium 2.2 Total Bilirubin 0.9 Direct Bilirubin 0.2 AST 24 ALT 11 Alkaline Phosphatase 94 Troponin I < 0.002 B-Natriuretic Peptide 25 Total Protein 7.5 Albumin 5.2 H Globulin 2.3 Albumin/Globulin Ratio 2.3 H Triglycerides Cholesterol LDL Cholesterol, Calc HDL Cholesterol Cholesterol/HDL Ratio TSH 1.13 Ur Collection Type Urine Color Urine Clarity Urine pH Ur Specific [place] Urine Protein Urine Glucose (UA) Urine Ketones Urine Blood Urine Nitrite Urine Bilirubin Urine Urobilinogen (Auto) Ur Leukocyte Esterase Urine RBC Urine WBC Ur Squamous Epith Cells Urine Bacteria Hyaline Casts Ur Culture Indicated? Influenza A (Rapid) Negative Influenza B (Rapid) Negative 05/08/25 05/08/25 05/08/25 16:29 21:46 21:52 WBC RBC Hgb Hct MCV MCH MCHC RDW Std Deviation Plt Count Neut % (Auto) Lymph % (Auto) [place] % (Auto) Eos % (Auto) Baso % (Auto) Neut # (Auto) Lymph # (Auto) [place] # (Auto) Eos # (Auto) Baso # (Auto) Immature Gran # (Auto) Absolute Nucleated RBC Immature Gran % Nucleated RBC % PT INR APTT 101.9 H* D D-Dimer Sodium Potassium Chloride Carbon Dioxide Anion Gap BUN Creatinine Estim Creat Clear Calc eGFR BUN/Creatinine Ratio Glucose Estimated Ave Glu mg/dL Hemoglobin A1c Calculated Osmolality Calcium Corrected Calcium Phosphorus Magnesium Total Bilirubin Direct Bilirubin AST ALT Alkaline Phosphatase Troponin I < 0.002 B-Natriuretic Peptide Total Protein Albumin Globulin Albumin/Globulin Ratio Triglycerides Cholesterol LDL Cholesterol, Calc HDL Cholesterol Cholesterol/HDL Ratio TSH Ur Collection Type Clean Catch Urine Color Lt-Yellow Urine Clarity Clear Urine pH 6.0 Ur Specific [place] 1.015 Urine Protein Negative Urine Glucose (UA) 4+ A Urine Ketones 1+ A Urine Blood Negative Urine Nitrite Negative Urine Bilirubin Negative Urine Urobilinogen (Auto) Negative Ur Leukocyte Esterase Negative Urine RBC 6 H Urine WBC 0 Ur Squamous Epith Cells 1 Urine Bacteria Rare Hyaline Casts < 1 Ur Culture Indicated? Not Indicated Influenza A (Rapid) Influenza B (Rapid) 05/09/25 05:15 WBC 7.2 RBC 4.12 Hgb 11.2 L Hct 34.7 L MCV 84 MCH 27.2 MCHC 32.3 RDW Std Deviation 45.4 Plt Count 183 Neut % (Auto) 85 H Lymph % (Auto) 12 [place] % (Auto) 3 Eos % (Auto) 0 Baso % (Auto) 0 Neut # (Auto) 6.1 Lymph # (Auto) 0.9 L [place] # (Auto) 0.2 Eos # (Auto) 0.0 Baso # (Auto) 0.0 Immature Gran # (Auto) 0.03 H Absolute Nucleated RBC 0.00 Immature Gran % 0 Nucleated RBC % 0 PT INR APTT 54.0 H D D-Dimer Sodium 141 Potassium 3.8 Chloride 106 Carbon Dioxide 22.7 Anion Gap 12 BUN 11 Creatinine 0.7 Estim Creat Clear Calc 112.3 eGFR > 60 BUN/Creatinine Ratio 16 Glucose [address] Glu mg/dL 151 H Hemoglobin A1c 6.9 H Calculated Osmolality 288 Calcium 8.9 Corrected Calcium 8.9 Phosphorus 2.8 Magnesium 2.3 Total Bilirubin 0.4 D Direct Bilirubin AST 20 ALT 9 L Alkaline Phosphatase 82 Troponin I B-Natriuretic Peptide Total Protein 6.7 Albumin 4.5 D Globulin 2.2 L Albumin/Globulin Ratio 2.0 Triglycerides 57 Cholesterol 197 LDL Cholesterol, Calc 124 HDL Cholesterol 62 H Cholesterol/HDL Ratio 3.2 L TSH 0.39 L Ur Collection Type Urine Color Urine Clarity Urine pH Ur Specific [place] Urine Protein Urine Glucose (UA) Urine Ketones Urine Blood Urine Nitrite Urine Bilirubin Urine Urobilinogen (Auto) Ur Leukocyte Esterase Urine RBC Urine WBC Ur Squamous Epith Cells Urine Bacteria Hyaline Casts Ur Culture Indicated? Influenza A (Rapid) Influenza B (Rapid) Quality Measures Quality Measures none Assessment & Plan Assessment Current Active Medications: Generic Name Dose Route Start Last Admin Trade Name Freq PRN Reason Stop Dose Admin Acetaminophen 650 mg 05/08/25 15:53 Acetaminophen 325 Mg Tablet PO 06/07/25 15:52 Q6H PRN Fever >100.4 or pain 1-3 Hydrocodone Bitart/Acetaminophen 1 tab 05/08/25 15:53 05/09/25 05:37 Hydrocodone/Apap 5/325 Tablet PO 05/13/25 15:52 1 tab Q4HR PRN Administration PAIN SCALE 4-10(Mod-Sev Albuterol/Ipratropium 3 ml 05/08/25 19:00 05/09/25 06:11 Albuterol/Ipratropium (Duoneb) Rt Rosa 3 Ml Nebu INH 06/07/25 18:59 3 ml Q6HRRT BRENNAN Administration Dextrose 25 ml 05/08/25 16:00 Dextrose 50%-Water Inj 50 Ml Syringe IV 06/07/25 15:59 Q15MIN PRN BG 50-70 responsive npo pt Dextrose 50 ml 05/08/25 16:00 Dextrose 50%-Water Inj 50 Ml Syringe IV 06/07/25 15:59 Q15MIN PRN BG <50 OR BG <70 & pt unresponsive Docusate Sodium 100 mg 05/09/25 09:00 05/09/25 09:02 Docusate Sod 100 Mg Capsule PO 06/08/25 08:59 Not Given QDAY REPLACED BY [facility] Protocol Famotidine 20 mg 05/08/25 21:00 05/09/25 08:16 Famotidine 20 Mg Tablet PO 06/07/25 20:59 20 mg BID BRENNAN Administration Glucagon 1 mg 05/08/25 16:00 Glucagon Inj 1 Mg Vial IM Q15MIN PRN BG <70, and no IV access Heparin Sodium/Dextrose 25,000 unit in 250 mls @ 17.983 mls/hr 05/08/25 15:00 05/09/25 08:15 Heparin In D5w Ivpb IV 05/22/25 14:59 15 units/kg/hr .[id number] BRENNAN 14.986 mls/hr Protocol Administration 18 UNITS/KG/HR Insulin Human Lispro 0 unit 05/08/25 17:00 05/09/25 08:16 Insulin Lispro (Admelog) 1 Unit/0.01 Ml Unit SC 06/07/25 16:59 3 unit ACHS BRENNAN Administration Protocol Plan Tori Arellano is a 59-year-old female with a history of asthma who is admitted and cardiology consulted for DVT/PE. #Unprovoked acute, occlusive DVT in left lower extremity #Multiple pulmonary emboli Presents with lower extremity swelling and pain for the last few days to the point where she could not bend at the knee. No associated shortness of breath but some right-sided chest discomfort. After starting heparin drip in ED, lower extremity swelling significantly improved per patient. Per history, no risk factors for development of DVT/PE as she has not recently had long distance travel, recent infection, or signs of malignancy but will require further work- up. Denies shortness of breath, breathing well on room air, and is hemodynamically stable; thus, unlikely massive/submassive pulmonary emboli, consistent with imaging findings but will further evaluate with echo. EKG with RBBB that may be sign of RV strain but no previous EKGs to compare. ? Can transition from heparin to eliquis tomorrow if echo without signs of RV strain ? Follow-up echo ? DVT/PE seemingly unprovoked, recommend further evaluation for coagulation disorders and malignancy work-up (i.e. never had colonoscopy) outpatient #Hyperglycemia in setting of recent steroids #Asthma #History of right ankle pain/break #Incidental 3 mm pulm nodule in RUL ? Continue management per primary team ----- Plan discussed with attending physician Dr. Honorio Almonte MD PGY-2 Internal Medicine Attending Provider Attestation/Addendum I have personally seen and examined the patient separately on the above date of service and discussed the plan of care with the resident. I reviewed the resident Dr. Shen Almonte consultation progress note and agree with the resident findings and plan in the note above and have also edited the documentation to reflect my findings and plan. A 59-year-old female with a past medical history of pulmonary asthma with intermittent albuterol uses, obesity presented to the hospital for worsening lower extremity swelling and pain over the past few days that she also has noted some having shortness of breath for the past 1 to 2 days and decided to come to the emergency department for further evaluation. The emergency department workup showed that patient did have occlusive left DVT which was extensive involving the left superficial vein, left popliteal vein, peroneal vein as well as posterior tibial vein. CTA chest showed segmental pulmonary embolism and hence cardiology was consulted for further evaluation for any mechanical thrombectomy. Reviewed the CT scan in detail and patient does not only have pulmonary embolus and subsegmental branches which are very small and are not amenable for any kind of mechanical thrombectomy. Also the troponins are negative along with the BNP and there was no evidence of any RV strain. Recommend to continue medical management with heparin drip for now and eventually changed to Eliquis aspirin DVT and PE guidelines. Patient does not feel any shortness of breath. Unclear etiology at the present moment and patient denies any kind of long distance travel except for 3 hours when she went to visit her granddaughter at her school, denies active smoking, use of estrogen supplements or family history of any DVT or a travel or prolonged immobilization in the recent past. Patient will need complete hypercoagulable workup along with emergency workup. She was scheduled for colonoscopy but has been postponing. As patient will be on blood thinners recommend to avoid any procedures for at least next 3 months. Patient will need to follow-up with the vascular medicine anticoagulation clinic in [place] to complete the workup and determine the duration of treatment for the PE as well as the DVT. Management of rest of the medical conditions as per primary team and other consultants. Thank you for the consult and allowing me to participate in the care of the patient. Cardiology will continue to follow. Donato Navarro M.D. Interventional Cardiology
--- NOTE | 2025-05-09 10:21 | PC.SS ---
Addendum entered by Yolanda Rice 05/09/25 10:29: Correction: RX is [facility] on [address] Original Note: Tori Arellano is a 59-year-old female admitted to [facility] for Pulmonary Embolism and DVT. SS conducted bedside contact with the patient to complete initial assessment and to discuss discharge planning. Role and reason explained. Patient confirmed demographic information. Patient identifies sister Lauren Sifuentes [phone] or sister Milagro Wang [phone] as her surrogate decision maker. Pt states she is able to complete all ADL?s independently. No need for any source of DME. Pts PCP is Dr. Renetta Banks (last visit last week). Pharmacy of choice is [facility] in [place]. Discharge options discussed and the pt wishes to return home.? Family will provide transportation upon DC. No further intervention required at this time, social worker aide would be available to address any further concerns. DC Plan: Home Contact: Lauren Stein Address: Confirmed on face sheet PCP: Renetta
--- NOTE | 2025-05-09 10:52 | PC.SS ---
Tori Arellano is a 59-year-old female admitted to [facility] for Pulmonary Embolism and DVT. SS conducted bedside contact with the patient to complete initial assessment and to discuss discharge planning. Role and reason explained. Patient confirmed demographic information. Patient identifies sister Lauren Sifuentes [phone] or sister Milagro Wang [phone] as her surrogate decision maker. Pt states she is able to complete all ADL?s independently. No need for any source of DME. Pts PCP is Dr. Renetta Banks (last visit last week). [facility]acy of choice [facility]. Discharge options discussed and the pt wishes to return home.? Family will provide transportation upon DC. No further intervention required at this time, social worker psychiatric would be available to address any further concerns. DC Plan: Home Contact: Lauren Stein Address: Confirmed on face sheet PCP: Renetta
[2025-05-09] MEDS: INSULIN DEGLUDEC 5 UNIT/0.05 ML (PER 5 UNITS) 10 UNIT SC (11:56)
[2025-05-09 12:08] LABS: Cocci Serology, IgM Negative (Negative)
[2025-05-09 14:44] LABS: Partial Thromboplastin Time 44.4 Seconds (22.0-36.0)
--- NOTE | 2025-05-09 14:56 | PC.SS ---
Rounding: On heprin drip, pending echo and cardio reccs, dc plan home
--- NOTE | 2025-05-09 15:42 | PD.RESPRO ---
Documentation for date of: 05/09/25 No overnight event. Patient is alert and orientated x3. No shortness of breath. Follow up with hypercoaguable panel. Pending echo and cardiology recommendations. Patient likely to transition to Eliquis within the next 24 hours. Senior Resident Attestation: I have discussed the case with supervising physician and engineering intern physician involved in the care of patient. I personally saw and examined patient and discussed the assessment and plan with the entire medical team, including attending. I agree with assessment and plan as documented below. - The patient's plan was discussed with attending Dr. Honey Dowell MD PGY2 Internal Medicine Subjective Subjective Interval history: Patient examined bedside, labs reviewed. Cards consulted, rec hep drip and follow up with echo, can transition to eliquis if no procedure necessary. Only symptom is a headache. Reports feeling tired recently, not very anxious, denies feeling jittery, denies feeing hot/ sweaty, denies feeling tremulous, Exam Vital Signs Temp Pulse Resp BP Pulse Ox O2 Del Method 97.0 F 69 18 155/86 H 99 Room Air 05/09/25 12:00 05/09/25 13:17 05/09/25 13:17 05/09/25 12:00 05/09/25 13:17 05/09/25 12:00 Narrative Exam GENERAL APPEARANCE: AOx3. NAD, activity normal for age, well developed/ well nourished, no cyanosis, pallor, or diaphoresis. HEENT: Normocephalic atraumatic, no facial trauma, neck is supple. Lids/conjunctiva normal. Mucous membranes moist, nares normal, lips/teeth normal uvula midline without oral pharyngeal erythema, exudate or swelling TMs normal bilaterally. No lymphangitis/lymphedema. CARDIAC: Regular rate and rhythm, S1+S2 heard. No murmurs, rubs, or gallops noted RESPIRATORY: respiratory effort normal, speaks in full sentences, no tripod position, no accessory muscle use. CTA ABDOMINAL: NBS. Soft, ND, +discomfort to palpitation at epigastrium. No evidence of fluid wave. No pulsatile masses on exam, rebound tenderness, Armstrong sign or pain over Mcburney's point. MUSCLES/EXTREMITIES: No abnormal range of motion. Left leg swelling and left popliteal swelling and tenderness and warmth (improved). DERM: Warm, pink and dry. No rashes, dermatoses, petechiae or lesions. NEUROLOGICAL: Speech is clear and appropriate. Normal level of consciousness. Gait not assessed. Coordination normal. 5/5 strength in all extremities. PSYCH: Normal mood and affect. Judgement/competence is appropriate Objective Labs 05/10/25 05:45 05/10/25 05:45 Labs: Laboratory Results - last 24 hr 05/08/25 05/08/25 05/08/25 16:29 21:46 21:52 WBC RBC Hgb Hct MCV MCH MCHC RDW Std Deviation Plt Count Neut % (Auto) Lymph % (Auto) [place] % (Auto) Eos % (Auto) Baso % (Auto) Neut # (Auto) Lymph # (Auto) [place] # (Auto) Eos # (Auto) Baso # (Auto) Immature Gran # (Auto) Absolute Nucleated RBC Immature Gran % Nucleated RBC % APTT 101.9 H* D Sodium Potassium Chloride Carbon Dioxide Anion Gap BUN Creatinine Estim Creat Clear Calc eGFR BUN/Creatinine Ratio Glucose Estimated Ave Glu mg/dL Hemoglobin A1c Calculated Osmolality Calcium Corrected Calcium Phosphorus Magnesium Total Bilirubin AST ALT Alkaline Phosphatase Troponin I < 0.002 Total Protein Albumin Globulin Albumin/Globulin Ratio Triglycerides Cholesterol LDL Cholesterol, Calc HDL Cholesterol Cholesterol/HDL Ratio TSH Ur Collection Type Clean Catch Urine Color Lt-Yellow Urine Clarity Clear Urine pH 6.0 Ur Specific [place] 1.015 Urine Protein Negative Urine Glucose (UA) 4+ A Urine Ketones 1+ A Urine Blood Negative Urine Nitrite Negative Urine Bilirubin Negative Urine Urobilinogen (Auto) Negative Ur Leukocyte Esterase Negative Urine RBC 6 H Urine WBC 0 Ur Squamous Epith Cells 1 Urine Bacteria Rare Hyaline Casts < 1 Ur Culture Indicated? Not Indicated Coccidioides IgM Ab Negative 05/09/25 05/09/25 05:15 13:55 WBC 7.2 RBC 4.12 Hgb 11.2 L Hct 34.7 L MCV 84 MCH 27.2 MCHC 32.3 RDW Std Deviation 45.4 Plt Count 183 Neut % (Auto) 85 H Lymph % (Auto) 12 [place] % (Auto) 3 Eos % (Auto) 0 Baso % (Auto) 0 Neut # (Auto) 6.1 Lymph # (Auto) 0.[address] [place] # (Auto) 0.2 Eos # (Auto) 0.0 Baso # (Auto) 0.0 Immature Gran # (Auto) 0.03 H Absolute Nucleated RBC 0.00 Immature Gran % 0 Nucleated RBC % 0 APTT 54.0 H D 44.4 H Sodium 141 Potassium 3.8 Chloride 106 Carbon Dioxide 22.7 Anion Gap 12 BUN 11 Creatinine 0.7 Estim Creat Clear Calc 112.3 eGFR > 60 BUN/Creatinine Ratio 16 Glucose [address] Glu mg/dL 151 H Hemoglobin A1c 6.9 H Calculated Osmolality 288 Calcium 8.9 Corrected Calcium 8.9 Phosphorus 2.8 Magnesium 2.3 Total Bilirubin 0.4 D AST 20 ALT 9 L Alkaline Phosphatase 82 Troponin I Total Protein 6.7 Albumin 4.5 D Globulin 2.2 L Albumin/Globulin Ratio 2.0 Triglycerides 57 Cholesterol 197 LDL Cholesterol, Calc 124 HDL Cholesterol 62 H Cholesterol/HDL Ratio 3.2 L TSH 0.39 L Ur Collection Type Urine Color Urine Clarity Urine pH Ur Specific [place] Urine Protein Urine Glucose (UA) Urine Ketones Urine Blood Urine Nitrite Urine Bilirubin Urine Urobilinogen (Auto) Ur Leukocyte Esterase Urine RBC Urine WBC Ur Squamous Epith Cells Urine Bacteria Hyaline Casts Ur Culture Indicated? Coccidioides IgM Ab Quality Measures Quality Measures none Assessment & Plan Assessment Current Active Medications: Generic Name Dose Route Start Last Admin Trade Name Freq PRN Reason Stop Dose Admin Acetaminophen 650 mg 05/08/25 15:53 Acetaminophen 325 Mg Tablet PO 06/07/25 15:52 Q6H PRN Fever >100.4 or pain 1-3 Hydrocodone Bitart/Acetaminophen 1 tab 05/08/25 15:53 05/09/25 05:37 Hydrocodone/Apap 5/325 Tablet PO 05/13/25 15:52 1 tab Q4HR PRN Administration PAIN SCALE 4-10(Mod-Sev Albuterol/Ipratropium 3 ml 05/08/25 19:00 05/09/25 13:17 Albuterol/Ipratropium (Duoneb) Rt Rosa 3 Ml Nebu INH 06/07/25 18:59 3 ml Q6HRRT BRENNAN Administration Dextrose 25 ml 05/08/25 16:00 Dextrose 50%-Water Inj 50 Ml Syringe IV 06/07/25 15:59 Q15MIN PRN BG 50-70 responsive npo pt Dextrose 50 ml 05/08/25 16:00 Dextrose 50%-Water Inj 50 Ml Syringe IV 06/07/25 15:59 Q15MIN PRN BG <50 OR BG <70 & pt unresponsive Docusate Sodium 100 mg 05/09/25 09:00 05/09/25 09:02 Docusate Sod 100 Mg Capsule PO 06/08/25 08:59 Not Given QDAY [facility] Protocol Famotidine 20 mg 05/08/25 21:00 05/09/25 08:16 Famotidine 20 Mg Tablet PO 06/07/25 20:59 20 mg BID BRENNAN Administration Glucagon 1 mg 05/08/25 16:00 Glucagon Inj 1 Mg Vial IM Q15MIN PRN BG <70, and no IV access Heparin Sodium/Dextrose 25,000 unit in 250 mls @ 17.983 mls/hr 05/08/25 15:00 05/09/25 08:15 Heparin In D5w Ivpb IV 05/22/25 14:59 15 units/kg/hr .[id number] BRENNAN 14.986 mls/hr Protocol Administration 18 UNITS/KG/HR Insulin Degludec 10 unit 05/09/25 10:45 05/09/25 11:56 Insulin Degludec 5 Unit/0.05 Ml (Per 5 Units) SC 06/08/25 10:44 10 unit QDAY BRENNAN Administration Insulin Human Lispro 0 unit 05/08/25 17:00 05/09/25 11:57 Insulin Lispro (Admelog) 1 Unit/0.01 Ml Unit SC 06/07/25 16:59 1 unit ACHS BRENNAN Administration Protocol Plan 59-year-old female here with several days of left leg swelling and shortness of breath. Admitted for PE and DVT. Continuing heparin drip 05/09. #PE 2/2 unprovoked DVT Virchow triad: stasis, hypercoagulability, endothelial injury. Only 1/3: stasis Patient had recent multiple 3 [address] and recent sick contact. She has swelling, erythema, and pain of her left lower extremity as well as pain in her back when breathing. On physical exam patient is breathing fine on RA + rhonchi +wheezes left side, Left leg swelling and left popliteal swelling and tenderness and warmth. Lab workup is siginficant for elevated D-dimer 3350 EKG RBBB QTc 483. COVID and flu negative. Venous doppler extensive acute occlusive DVT. Cxr: no active disease. Chest CTA positive for multiple segmental pulmonary artery emboli. Started on heparin drip in ED. Plan: -Heparin drip -Cocci serology:___ -ECHO:___ -TSH: 0.39 -T4:___ -Cards consulted: if no procedure indicated then can transition to eliquis 10 mg twice daily for 7 days and then 5 mg twice daily thereafter - Inherited thrombophilias: factor V Leiden, prothrombin gene mutation, protein C deficiency, protein S deficiency, antithrombin deficiency. -Acquired thrombophilias: antiphospholipid syndrome (lupus anticoagulant, anticardiolipin, and beta-2 glycoprotein I antibodies). #Hyperglycemia #c/f diabetes A1C 6.8 03/15/24. 127 glucose on admission. Plan: -ISS step 1 -Bedside glucose checks ACHS -Degludec 10 unit SC QD -Recheck A1C in AM: 6.9 -FUP lipid panel: WNL #Hx of asthma Wheezing heard on physical exam, has an albuterol inhaler Plan: -Duonebs 3ml INH Q6HRRT rtsol #Hx of R ankle pain/break Plan: -Pain control tylenol 650mg Q6H PRN and [place] 5 Q4HR PRN #Incidental finding #3mm pulm nodule RUL 3 mm pulmonary nodule right upper lobe on CT angio Plan: -recommend 6-month follow-up CT chest without contrast Health Maintenance: Code status: Full DVT prophylaxis: Heparin drip GI prophylaxis: Famotidine Diet: Low carb consistent [place]:None Lines: PIV Supplemental O2: NC Disposition: Tele for DVT and PE management Patient seen and reviewed with attending Dr. Méndez and supervising resident Dr. Dowell. Note written by Jay Schwartz MD PGY-1 Attending Provider Attestation/Addendum I have seen and examined the patient. I was physically present for the cardenas portions of the services provided including history, physical exam, diagnosis, treatment plans and orders. I agree with assessment and plan of care as documented by residents. Even though this this note was carefully revised there may still be minor errors in racecourse barrier attendant due to voice recognition software. Flo Méndez MD
[2025-05-09] MEDS: HEPARIN SOD INJ 5000 UNIT/ML VIAL 4000 UNIT IVP (16:47)
[2025-05-10] VITALS: BP 116/73; PULSE 67; PULSE 79; RESP 17; TEMP 36.6; O2SAT 97
[2025-05-10 00:26] LABS: Partial Thromboplastin Time 61.5 Seconds (22.0-36.0)
--- NOTE | 2025-05-10 00:33 | PC.NURSE ---
PTT result 61.5, pt is on therapeutic result, no adjustment at this time.
[2025-05-10] MEDS: ALBUTEROL/IPRATROPIUM (Duoneb) RT SOL 3 ML NEBU INH (00:41)
[2025-05-10 00:42] VITALS: PULSE 66; PULSE 87; RESP 18; RESP 98; O2SAT 99
[2025-05-10] MEDS: Heparin/D5w 25K 250 ML Ivpb 25,000 UNIT/250 ML BAG 16.984 UNIT IV (01:46)
[2025-05-10 04:00] VITALS: BP 118/71; PULSE 69; PULSE 72; RESP 16; TEMP 36.3; O2SAT 96
[2025-05-10 06:12] LABS: Basophils # (Auto) 0.0 Thou/mm3 (0.0-0.2); Basophils % (Auto) 1 % (0-2.5); Eosinophils # (Auto) 0.1 Thou/mm3 (0.0-0.5); Eosinophils % (Auto) 2 % (0-10); Hematocrit 31.5 % (36.0-46.0); Hemoglobin 10.0 g/dL (12.0-16.0); Immature Granulocytes Auto 0.03 Thou/mm3 (0.00-0.00); Lymphocytes # (Auto) 2.3 Thou/mm3 (1.0-4.8); Lymphocytes % (Auto) 28 % (10-50); Mean Corpuscular HGB Conc 31.7 g/dl (31.0-37.0); Mean Corpuscular Hemoglobin 27.0 pg (25.0-35.0); Mean Corpuscular Volume 85 fL (80-100); Monocytes # (Auto) 0.6 Thou/mm3 (0.0-0.8); Monocytes % (Auto) 7 % (0-12); Neutrophils # (Auto) 5.3 Thou/mm3 (1.8-7.7); Neutrophils % (Auto) 63 % (37-80); Nucleated Red Blood Cell # 0.00 Thou/mm3 (0.00-0.00); Nucleated Red Blood Cell % 0 /100 WBC (0); Platelet Count 175 Thou/mm3 (140-440); RDW Standard Deviation 46.5 fL (36.4-46.3); Red Blood Count 3.71 Miln/mm3 (4.00-5.20); White Blood Count 8.4 Thou/mm3 (3.6-11.0)
[2025-05-10 06:36] VITALS: PULSE 73; RESP 15; RESP 98; O2SAT 98
[2025-05-10 06:40] LABS: Partial Thromboplastin Time 60.6 Seconds (22.0-36.0)
[2025-05-10 06:43] LABS: Alanine Aminotransferase 7 U/L (10-49); Albumin, Serum 4.0 gm/dL (3.5-5.0); Albumin/Globulin Ratio 1.8 (1.2-2.2); Alkaline Phosphatase 66 U/L (46-116); Anion Gap 12 (7-16); Aspartate Amino Transferase 17 U/L (0-34); BUN/Creatinine Ratio 27 Ratio (12-20); Bilirubin,Total 0.3 mg/dL (0.3-1.2); Blood Urea Nitrogen 19 mg/dL (9-23); Calcium 8.6 mg/dL (8.3-10.6); Calcium (Corrected) 8.6 mg/dL (8.5-10.1); Carbon Dioxide 23.0 mMol/L (20.0-31.0); Chloride 110 mMol/L (98-107); Creatinine (Component) 0.7 mg/dL (0.6-1.3); Estimated Creatinine Clearance 112.4 mL/min (>60); Free T4 (Free Thyroxine) 1.14 ng/dL (0.89-1.76); Globulin 2.2 gm/dL (2.3-3.5); Glucose 117 mg/dL (74-106); Magnesium 2.2 mg/dL (1.6-2.6); Osmolality,Calculated 291 (275-295); Phosphorous 3.6 mg/dL (2.4-5.1); Potassium 3.7 mMol/L (3.4-5.1); Sodium 145 mMol/L (136-145); Total Protein 6.2 gm/dL (5.7-8.2); eGFR > 60 See Note
[2025-05-10 08:00] VITALS: PULSE 71
[2025-05-10] MEDS: INSULIN DEGLUDEC 5 UNIT/0.05 ML (PER 5 UNITS) 10 UNIT SC (09:16)
[2025-05-10] MEDS: FAMOTIDINE 20 MG TABLET PO (09:17)
--- NOTE | 2025-05-10 09:49 | PD.RESPRO ---
Documentation for date of: 05/10/25 Subjective Subjective Interval history: No acute overnight events. As mentioned previously, echo did not show any signs of RV strain and patient was deemed stable for discharge with Eliquis dose for DVT/PE. At this time, cannot determine the cause and are unprovoked until proven otherwise. Workup already started and will have to follow-up with her PCP for care and cardiology outpatient. Exam Vital Signs Temp Pulse Resp BP Pulse Ox O2 Del Method 97.3 F 73 15 118/71 98 Room Air 05/10/25 04:00 05/10/25 06:36 05/10/25 06:36 05/10/25 04:00 05/10/25 06:36 05/10/25 04:00 Narrative Exam General: AOx3, no acute distress, able to speak full sentences HEENT: NC/AT, mucous membranes moist, bilateral sclera anicteric Cardiovascular: regular rate and rhythm, S1/S2 present, no murmurs appreciated Pulmonary: clear to auscultation bilaterally, no rales/rhonchi/wheezes Abdominal: soft, non-tender, non-distended, no rebound/guarding, normal bowel sounds present Musculoskeletal: normal ROM, trace edema in left lower extremity and tenderness to palpation in popliteal region Skin: warm and dry, intact, no rashes Neuro: CN II-XII intact, no focal deficits Objective Labs 05/10/25 05:45 05/10/25 05:45 Labs: Laboratory Results - last 24 hr 05/08/25 05/09/25 05/09/25 16:29 13:55 23:30 WBC RBC Hgb Hct MCV MCH MCHC RDW Std Deviation Plt Count Neut % (Auto) Lymph % (Auto) Barnes % (Auto) Eos % (Auto) Baso % (Auto) Neut # (Auto) Lymph # (Auto) Barnes # (Auto) Eos # (Auto) Baso # (Auto) Immature Gran # (Auto) Absolute Nucleated RBC Immature Gran % Nucleated RBC % APTT 44.4 H 61.5 H D Sodium Potassium Chloride Carbon Dioxide Anion Gap BUN Creatinine Estim Creat Clear Calc eGFR BUN/Creatinine Ratio Glucose Calculated Osmolality Calcium Corrected Calcium Phosphorus Magnesium Total Bilirubin AST ALT Alkaline Phosphatase Total Protein Albumin Globulin Albumin/Globulin Ratio Free T4 Coccidioides IgM Ab Negative 05/10/25 05:45 WBC 8.4 RBC 3.71 L Hgb 10.0 L Hct 31.5 L MCV 85 MCH 27.0 MCHC 31.7 RDW Std Deviation 46.5 H Plt Count 175 Neut % (Auto) 63 Lymph % (Auto) 28 Barnes % (Auto) 7 Eos % (Auto) 2 Baso % (Auto) 1 Neut # (Auto) 5.3 Lymph # (Auto) 2.3 Barnes # (Auto) 0.6 Eos # (Auto) 0.1 Baso # (Auto) 0.0 Immature Gran # (Auto) 0.03 H Absolute Nucleated RBC 0.00 Immature Gran % 0 Nucleated RBC % 0 APTT 60.6 H Sodium 145 Potassium 3.7 Chloride 110 H Carbon Dioxide 23.0 Anion Gap 12 BUN 19 Creatinine 0.7 Estim Creat Clear Calc 112.4 eGFR > 60 BUN/Creatinine Ratio 27 H Glucose 117 H D Calculated Osmolality 291 Calcium 8.6 Corrected Calcium 8.6 Phosphorus 3.6 Magnesium 2.2 Total Bilirubin 0.3 AST 17 ALT 7 L Alkaline Phosphatase 66 Total Protein 6.2 Albumin 4.0 D Globulin 2.2 L Albumin/Globulin Ratio 1.8 Free T4 1.14 Coccidioides IgM Ab Quality Measures Quality Measures none Assessment & Plan Assessment Current Active Medications: Generic Name Dose Route Start Last Admin Trade Name Freq PRN Reason Stop Dose Admin Acetaminophen 650 mg 05/08/25 15:53 Acetaminophen 325 Mg Tablet PO 06/07/25 15:52 Q6H PRN Fever >100.4 or pain 1-3 Hydrocodone Bitart/Acetaminophen 1 tab 05/08/25 15:53 05/09/25 05:37 Hydrocodone/Apap 5/325 Tablet PO 05/13/25 15:52 1 tab Q4HR PRN Administration PAIN SCALE 4-10(Mod-Sev Albuterol/Ipratropium 3 ml 05/10/25 08:32 Albuterol/Ipratropium (Duoneb) Rt Rosa 3 Ml Nebu INH 06/07/25 18:59 Q6HRRT PRN Wheezing Apixaban 10 mg 05/10/25 09:15 Apixaban 2.5 Mg Tablet PO 05/16/25 21:01 BID BRENNAN Dextrose 25 ml 05/08/25 16:00 Dextrose 50%-Water Inj 50 Ml Syringe IV 06/07/25 15:59 Q15MIN PRN BG 50-70 responsive npo pt Dextrose 50 ml 05/08/25 16:00 Dextrose 50%-Water Inj 50 Ml Syringe IV 06/07/25 15:59 Q15MIN PRN BG <50 OR BG <70 & pt unresponsive Docusate Sodium 100 mg 05/09/25 09:00 05/10/25 09:03 Docusate Sod 100 Mg Capsule PO 06/08/25 08:59 Not Given QDAY BRENNAN Protocol Famotidine 20 mg 05/08/25 21:00 05/10/25 09:17 Famotidine 20 Mg Tablet PO 06/07/25 20:59 20 mg BID BRENNAN Administration Glucagon 1 mg 05/08/25 16:00 Glucagon Inj 1 Mg Vial IM Q15MIN PRN BG <70, and no IV access Insulin Degludec 10 unit 05/09/25 10:45 05/10/25 09:16 Insulin Degludec 5 Unit/0.05 Ml (Per 5 Units) SC 06/08/25 10:44 10 unit QDAY BRENNAN Administration Insulin Human Lispro 0 unit 05/08/25 17:00 05/10/25 07:30 Insulin Lispro (Admelog) 1 Unit/0.01 Ml Unit SC 06/07/25 16:59 Not Given ACHS [facility] Protocol Plan Tori Arellano is a 59-year-old female with a history of asthma who is admitted and cardiology consulted for DVT/PE. #Unprovoked acute, occlusive DVT in left lower extremity #Multiple pulmonary emboli Presents with lower extremity swelling and pain for the last few days to the point where she could not bend at the knee. No associated shortness of breath but some right-sided chest discomfort. After starting heparin drip in ED, lower extremity swelling significantly improved per patient. Per history, no risk factors for development of DVT/PE as she has not recently had long distance travel, recent infection, or signs of malignancy but will require further work-up. Denies shortness of breath, breathing well on room air, and is hemodynamically stable; thus, unlikely massive/submassive pulmonary emboli, consistent with imaging findings but will further evaluate with echo. EKG with RBBB that may be sign of RV strain but no previous EKGs to compare. Echo 04/2025: EF 60 to 65%, LV size and function normal, grade 1 diastolic dysfunction. RV size and function normal, RVSP 33 mmHg, no evidence of RV strain. Trace MR and TR. LA mildly enlarged. ? Eliquis 10 mg twice daily for 7 days and 5 mg twice daily thereafter ? DVT/PE seemingly unprovoked, recommend further evaluation for coagulation disorders and malignancy work-up (i.e. never had colonoscopy) outpatient ? Avoid procedures of any kind for next three months #Hyperglycemia in setting of recent steroids #Asthma #History of right ankle pain/break #Incidental 3 mm pulm nodule in RUL ? Continue management per primary team ----- Plan discussed with attending physician Dr. Honorio Almonte MD PGY-2 Internal Medicine Attending Provider Attestation/Addendum I have personally seen and examined the patient separately on the above date of service and discussed the plan of care with the resident. I reviewed the resident Dr. Dr. Mali Springer consultation progress note and agree with the resident findings and plan in the note above and have also edited the documentation to reflect my findings and plan. Donato Navarro M.D. Interventional Cardiology
[2025-05-10] MEDS: APIXABAN 2.5 MG TABLET 10 MG PO (09:53)
[2025-05-10] MEDS: POTASSIUM CHLORIDE 10% 20 MEQ/15 ML UDC 40 MEQ PO (09:53)
[2025-05-10 10:38] LABS: Cocci Serology, IgG Negative (Negative)
[2025-05-10 12:00] VITALS: BP 138/88; PULSE 70; RESP 19; TEMP 36.4; O2SAT 98
--- NOTE | 2025-05-10 13:02 | ESDS_ITS ---
Planned Discharge Date 05/10/25 DS: Providers Provider Date of admission: 05/08/25 15:31 Primary care physician: Renetta Banks MD Admitting Provider: Fol Méndez MD Attending Provider on Admission: Flo Méndez MD Consults: 05/08/25 15:54 Consult to Cardiology Routine Comment: Consulting Provider: Donato Navarro Instructions: PE 05/09/25 08:03 Referral Registered Dietitian Routine Comment: Attending Provider on DC: Flo Méndez MD Discharging Provider: Waldo Gama DO DS: Diagnosis Problem List Completed Was Problem List Reviewed/Reconciled?: Yes Hospital Course Hospital Course Hospital course: Summary: Patient is a 59-year-old female with a medical history of prediabetes and asthma who presented to the emergency room on 05/08/25 with a chief complaint of abnormal left lower leg swelling with erythema and pain. ER Course: Physical Exam: Unremarkable, No respiratory distress lungs clear to auscultation, heart RRR and no JVD Vitals: Hypertensive 163/90, HR 82 RR 19 O2 97% RA Labs: Unremarkable CBC and CMP, coag panel wnl, D-dimer 3,350, troponin <0.002 COVID and flu negative UA +4 glucose Imaging: EKG RBBB QTc 483. Venous doppler: extensive acute occlusive DVT left superficial femoral vein, left popliteal peroneal posterior tibial veins extensive acute occlusive DVT . Cxr: no active disease. Chest CTA positive for multiple segmental pulmonary artery emboli, 3mm pulm nodule RUL Tx: Duoneb, solumedrol 125mg IV, IV fluids, heparin gtt Hospital Course: During patient's hospitalization, she was treated with heparin gtt and had labs ordered to work-up hypercoagulability for her pulmonary embolism 2/2 unprovoked DVT. Cardiology was consulted and recommended transitioning from heparin gtt to Eliquis which occurred after 05/08 echocardiogram was negative for RV strain and showed grade I diastolic function. By 05/10, patient was deemed clinically stabilized and was discharged home with instructions to continue her Eliquis for at least 3 months and to start taking metformin for her diabetes. Instructions: -Take Eliquis 10 mg twice daily for one WEEK then reduce dose to Eliquis 5 mg twice daily for at least 3 months. Follow up with hypercoaguable work that was started in hospital and see primary care provider for further help. -STARTED Metformin 500 mg XL twice daily for diabetes. -Please follow up with your primary care provider within one week of discharge - Follow with your Primary Care Physician for age appropriate cancer screening -If your symptoms worsen,please seek immediate medical attention and return to your nearest emergency room -If you do not have a primary care provider, you may follow up at the [facility] at [address] [place] [address] [address], [place] [address], #Unprovoked Pulmonary Embolism, improving #Left Lower DVT, improving #Hyperglycemia #NEW Diabetes Mellitus Type II, non insulin depdent #History of Asthma #History of Right ankle pain Status at Discharge Cognitive/Behavioral Status at Discharge: stable Functional Status at Discharge: independent ambulation Overall Status at Discharge: patient is back to baseline Patient's care plan was discussed with my attending, Dr. Méndez, and senior resident, Dr. Dowell. Waldo Gama, Internal Medicine, PGY-1 Senior Resident Attestation: I have discussed the case with supervising physician and international student advisor physician involved in the care of patient. I personally saw and examined patient and discussed the assessment and plan with the entire medical team, including attending. I agree with assessment and plan as documented above. The patient's plan was discussed with attending Dr. Honey Dowell MD PGY2 Internal Medicine Time Spent with Patient Time attestation: Total time spent providing and/or coordinating discharge services: 35 min Time spent: Greater than 30 minutes Exam Vital Signs Temp Pulse Resp BP Pulse Ox O2 Del Method 97.3 F 71 15 118/71 98 Room Air 05/10/25 04:00 05/10/25 08:00 05/10/25 06:36 05/10/25 04:00 05/10/25 06:36 05/10/25 04:00 Narrative Exam GENERAL APPEARANCE: AOx3. NAD, activity normal for age, well developed/ well nourished, no cyanosis, pallor, or diaphoresis. HEENT: Normocephalic atraumatic, no facial trauma, neck is supple. Lids/conjunctiva normal. Mucous membranes moist, nares normal, lips/teeth normal uvula midline without oral pharyngeal erythema, exudate or swelling TMs normal bilaterally. No lymphangitis/lymphedema. CARDIAC: Regular rate and rhythm, S1+S2 heard. No murmurs, rubs, or gallops noted RESPIRATORY: respiratory effort normal, speaks in full sentences, no tripod position, no accessory muscle use. CTA ABDOMINAL: NBS. Soft, ND, +discomfort to palpitation at epigastrium. No evidence of fluid wave. No pulsatile masses on exam, rebound tenderness, Armstrong sign or pain over Mcburney's point. MUSCLES/EXTREMITIES: No abnormal range of motion. Left leg swelling and left popliteal swelling and tenderness and warmth (improved). DERM: Warm, pink and dry. No rashes, dermatoses, petechiae or lesions. NEUROLOGICAL: Speech is clear and appropriate. Normal level of consciousness. Gait not assessed. Coordination normal. 5/5 strength in all extremities. PSYCH: Normal mood and affect. Judgement/competence is appropriate Discharge Plan Plan Patient Disposition: HOME (Self Care) Patient condition on transfer: Stable Care Plan Goals: Instructions: -Take Eliquis 10 mg twice daily for one WEEK then reduce dose to Eliquis 5 mg twice daily for at least 3 months. Follow up with hypercoaguable work that was started in hospital and see primary care provider for further help. -STARTED Metformin 500 mg XL twice daily for diabetes. -Please follow up with your primary care provider within one week of discharge - Follow with your Primary Care Physician for age appropriate cancer screening -If your symptoms worsen,please seek immediate medical attention and return to your nearest emergency room -If you do not have a primary care provider, you may follow up at the [facility] at [facility] [address], [place] [address], Prescriptions/Referrals Prescriptions/Med Rec: New metformin [Glucophage XR] 500 mg tablet extended release 24 hr 500 mg PO BID 90 Days Qty: 180 0RF apixaban 5 mg (74 tabs) tablets,dose pack 5 mg PO BID Qty: 74 0RF Rx Instructions: Please take two tablets the first week until May 16, 2025 and then 1 tablet after that for at least 3 months, please follow up your primary care provider Continued albuterol sulfate 90 mcg/actuation HFA aerosol inhaler 2 puff INHALATION Q4H PRN (Reason: shortness of breath or wheezing) Patient Comments: INHALE 2 PUFFS BY MOUTH EVERY 4 TO 6 HOURS NEEDED FOR SHORTNESS OF BREATH ibuprofen 800 mg tablet 800 mg PO Q8H PRN (Reason: pain) Patient Comments: TAKE 1 TABLET BY MOUTH EVERY 8 HOURS NEEDED WITH FOOD OR MILK Referrals: Donato Navarro MD [Referring Provider, Cardiology] Renetta Banks MD [Primary Care Provider, Family Practice] Patient/Caregiver Discharge Instructions Discharge Activity: activity as tolerated Education Materials: Pulmonary Embolism, Using Blood Thinners Anticoagulants, DVT Dc, Diabetes Exercise Plan, ED Diabetes- Overview, ED Diabetic Foot Care Print Language: Czech Stand Alone Forms: Cher Award Info., Patient Portal Info Letter Discharge Order Discharge Orders: Discharge (Routine); Ordered 05/10/25 Ordered By: Kait Dowell Quality Discharge Quality Measures VTE prophylaxis MD Attestestation MD Attestation I have seen and examined the patient. I was physically present for the cardenas portions of the services provided including history, physical exam, diagnosis, treatment plans and orders. I agree with assessment and plan of care as documented by residents. Even though this this note was carefully revised there may still be minor errors in seismic observer due to voice recognition software. Flo Méndez MD
[2025-05-14 06:19] LABS: Protein C Activity* 136 % normal (70-180)
[2025-05-14 07:06] LABS: Cardiolipin Ab IgA <2.0 APL-U/mL; Cardiolipin Ab IgG <2.0 GPL-U/mL
[2025-05-15 06:32] LABS: Antithrombin III, Activity 122 % normal (80-135); Antithrombin III, Antigen 99 % normal (80-120); B2-Glycoprotein I Ab IgA <2.0 U/mL; B2-Glycoprotein I Ab IgG <2.0 U/mL; B2-Glycoprotein I Ab IgM <2.0 U/mL; Cardiolipin Ab IgM <2.0 MPL-U/mL; Factor V Leiden Mutation NEGATIVE; Hexagonal Phase Confirm NEGATIVE (NEGATIVE); PTT-LA Screen 81 seconds (< OR = 40); Phos.Serine Ab IgG <9 U (< OR = 30); Phos.Serine Ab IgM 12 U (< OR = 30); Protein S Activity* 95 % normal (60-140); Prothrombin Fac II Mutation NEGATIVE; dRVVT Screen 39 seconds (< OR = 45)
== END 2025-05-10 12:18 | disposition home or self-care (01) | DRG 176 ==
LOC: SERX 15:54 → SERHOLD 16:19 → S2NX 23:53 → S3SX 05-09 19:41
PROVIDERS: Student in an Organized Health Care Education/Training Program; Admitting Provider Student in an Organized Health Care Education/Training Program; Emergency Provider Emergency Medicine; PCP Family Medicine; Visit Provider Student in an Organized Health Care Education/Training Program
DX: I26.99 Other pulmonary embolism without acute cor pulmonale (principal); I82.402 Acute embolism and thrombosis of unspecified deep veins of left lower extremity; I82.442 Acute embolism and thrombosis of left tibial vein; D68.62 Lupus anticoagulant syndrome; D68.61 Antiphospholipid syndrome; E11.65 Type 2 diabetes mellitus with hyperglycemia; R91.1 Solitary pulmonary nodule; J45.909 Unspecified asthma, uncomplicated; Z79.01 Long term (current) use of anticoagulants; Z79.84 Long term (current) use of oral hypoglycemic drugs
CPT/HCPCS: 36415; 71045; 71275; 80053; 80061; 81001; 81240; 81241; 82248; 83036; 83735; 83880; 84100; 84439; 84443; 84484; 85025; 85300; 85301; 85303; 85306; 85379; 85598; 85610; 85613; 85730; 86146; 86147; 86148; 86331; 86635; 87502; 87811; 93005; 93225; 93306; 94640; 96361; 96365; 96366; 96375; 99284; A4649; A9270; J1644; J1815; J2919; J7030; Q9967

== ENCOUNTER → 2025-05-08 | Outpatient (CLI) | payer BC, SELFPAY ==
--- NOTE | 2025-05-08 08:59 | XR_ITS ---
Examination: Duplex scan of the lower extremity, unilateral left Date and time of exam: May 08, 2025, 0942 hours INDICATIONS: Onset left leg swelling and pain beginning 3 days ago Technique: Duplex scan of the extremity veins using B-mode/grayscale imaging and Doppler spectral analysis and color flow Attention is directed to internal echogenicity, compression and augmentation involving these veins, color flow assessment, spectral analysis Findings: Extensive acute occlusive DVT involving left superficial femoral vein, left popliteal peroneal posterior tibial veins IMPRESSION: Extensive acute occlusive DVT
== END | disposition home or self-care (01) ==
LOC: CDIM 08:53
PROVIDERS: PCP Nurse Practitioner Family; Referring Provider Nurse Practitioner Family; Visit Provider Nurse Practitioner Family
DX: I82.492 Acute embolism and thrombosis of other specified deep vein of left lower extremity (principal)
CPT/HCPCS: 93971